=== PATIENT | female | born 1930 | race Caucasian/White ===

== ENCOUNTER → 2016-07-18 | Outpatient (CLI) | payer MEDICARE, OTHER ==
[~2016-07-18] MED LIST: ALPR.25 PO; CALC600T22 PO; CEFU1TAB43 PO; CETI10 PO; DILT120C9 PO; DUONSOL2 NEB; FLEC50TA PO; GLUCTAB PO; IPRAAER IN; LEVO75TA3 PO; LEXA10TA PO; MEDR4PAK3 PO; PRAD75CA PO; PRESCAP6 PO; RANI150T PO; SPIR25TA PO; ZOLP10TA3 PO
[2016-07-18 13:41] LABS: ALKALINE PHOSPHATASE 93 U/L (45-117); ALT (GPT) 17 U/L (10-53); ANION GAP 9 MEQ/L (5-15); AST (GOT) 16 U/L (15-37); BICARBONATE 31.3 MEQ/L (21.0-32.0); BLOOD UREA NITROGEN 20 MG/DL (7-18); CHLORIDE 102 MEQ/L (98-107); FREE T4 1.35 NG/DL (0.76-1.46); GLOMERULAR FILTRATION RATE 55 ML/MIN (>89); GLUCOSE,FASTING 126 MG/DL (74-99); SODIUM (NA) 142 MEQ/L (136-145); TOTAL BILIRUBIN ADULT 0.4 MG/DL (0.2-1.0)
== END ==
LOC: PLAB 08:27
PROVIDERS: ATTEND Internal Medicine Endocrinology, Diabetes & Metabolism
DX: E03.9 Hypothyroidism, unspecified (principal); E83.52 Hypercalcemia
CPT/HCPCS: 36415; 80053; 82306; 83970; 84439; 84443

== ENCOUNTER 2016-12-17 17:32 | Emergency (ER) | payer MEDICARE, OTHER ==
[~2016-12-17] VITALS: Ht 157.5 cm; Wt 72.5 kg
[2016-12-17 17:50] VITALS: BP 119/68; PULSE 59; RESP 16; TEMP 98; O2SAT 95
--- NOTE | 2016-12-17 18:22 | PD ---
HPI Chief Complaint: Fall Time Seen by Provider: 18:17 Travel History International Travel<30 days: No Contact w/Intl Traveler<30days: No Traveled to known affect area: No History of Present Illness HPI This 86-year-old female is complaining of left lower posterior rib pain. She says she fell and hit this area. She thinks it was a few days ago. She's been having pain since then. Her son has noted some swelling in this area. She takes Pradaxa for atrial fibrillation. He has a history of COPD. Pain is aggravated by movement and is moderate in intensity PFSH Past Medical History Hx Anticoagulant Therapy: Yes (pradaxa) Arthritis: No Asthma: No Atrial Fibrillation: Yes Autoimmune Disease: No Blood Disorders: No Anxiety: Yes Depression: No Heart Rhythm Problems: Yes (A-fib) Cancer: Yes (melanoma, forehead) Cardiovascular Problems: Yes (htn on meds, a-fib, pacemaker) High Cholesterol: No Chemotherapy: No Chest Pain: No Congestive Heart Failure: No COPD: Yes Cerebrovascular Accident: Yes (tia) Diabetes: Yes (type 2) Diminished Hearing: No Endocrine: Yes Gastrointestinal Disorders: Yes GERD: No Genitourinary: No Headaches: No Hiatal Hernia: No Hypertension: Yes Immune Disorder: No Implanted Vascular Access Dvce: No Kidney Stones: Yes Musculoskeletal: No Neurologic: Yes Psychiatric: No Reproductive: No Respiratory: Yes (copd, oxygen use at night. sleep apnea) Immunizations Current: No Migraines: No Myocardial Infarction: No Radiation Therapy: No Renal Failure: No Seizures: No Sickle Cell Disease: No Sleep Apnea: No Thyroid Disease: No Ulcer: No ?: Not Menopausal: Yes : 1 Para: 1 Past Surgical History Abdominal Surgery: Yes (appendectomy) AICD: No Appendectomy: Yes (1950) Arteriovenous Shunt: No Cardiac Surgery: Yes (pacemaker insertion April 2011) Ear Surgery: No Endocrine Surgery: No Eye Surgery: Yes (laser surgery left eye) Genitourinary Surgery: No Gynecologic Surgery: Yes Hysterectomy: No Insulin Pump: No Joint Replacement: No Neurologic Surgery: No Oral Surgery: Yes ( permanent bridge lower) Pacemaker: Yes (Guidant model 4135 serial # [id number]) Thoracic Surgery: No Other Surgery: Yes (vagal surgery over 20 years ago, kidney stone removals) Social History Alcohol Use: Yes (RARE) Tobacco Use: No (QUIT ) Substance Use: No Allergies-Medications (Allergen,Severity, Reaction): Coded Allergies: Lisinopril (Verified Allergy, Severe, Cough, 12/17/16) Reported Meds & Prescriptions Reported Meds & Active Scripts Active Reported Combivent Respimat Inh (Ipratropium-Albuterol Inh) 20-100 Correction/Act Aero 1 Puff INH QID Duoneb (Ipratropium-Albuterol Neb) 0.5-2.5 Mg/3 Ml Neb 1 Nebule INH Q4HR NEB PRN Alprazolam 0.25 Mg Tab 0.25 Mg PO Q6H PRN Ranitidine (Ranitidine HCl) 150 Mg Tab 150 Mg PO HS PRN Ambien (Zolpidem Tartrate) 10 Mg Tab 10 Mg PO HS PRN Metformin ER (Metformin HCl) 500 Mg Soy 500 Mg PO DAILY With evening meal Diltiazem ER 12 HR (Diltiazem HCl) 120 Mg Caper 120 Mg PO BID Levothyroxine (Levothyroxine Sodium) 75 Mcg Tab 75 Mcg PO DAILY Escitalopram (Escitalopram Oxalate) 10 Mg Tab 10 Mg PO DAILY Spironolactone 25 Mg Tab 25 Mg PO DAILY Flecainide (Flecainide Acetate) 50 Mg Tab 50 Mg PO BID Pradaxa (Dabigatran) 75 Mg Cap 75 Mg PO BID Review of Systems General / Constitutional: No: Fever, Chills Eyes: No: Diploplia, Blurred Vision HENT: No: Headaches, Vertigo Cardiovascular: Positive: Chest Pain or Discomfort, No: Palpitations Respiratory: Positive: Pleuritic Pain Gastrointestinal: No: Nausea, Vomiting Genitourinary: No: Urgency, Frequency Musculoskeletal: Positive: Pain, No: Myalgias Skin: No Rash, No Itching Physical Exam Narrative GENERAL: Well-developed female SKIN: Focused skin assessment warm/dry. HEAD: Atraumatic. Normocephalic. EYES: Pupils equal and round. No scleral icterus. No injection or drainage. ENT: No nasal bleeding or discharge. Mucous membranes pink and moist. NECK: Trachea midline. No JVD. CARDIOVASCULAR: Irregular rate and rhythm. No murmur appreciated. RESPIRATORY: No accessory muscle use. Clear to auscultation. Breath sounds equal bilaterally. GASTROINTESTINAL: Abdomen soft, non-tender, nondistended. Hepatic and splenic margins not palpable. Ecchymosis and some swelling in the left flank area MUSCULOSKELETAL: No obvious deformities. No clubbing. No cyanosis. No edema. There is no midline tenderness of the back. NEUROLOGICAL: Awake and alert. No obvious cranial nerve deficits. Motor grossly within normal limits. Normal speech. PSYCHIATRIC: Appropriate mood and affect; insight and judgment normal. Data Data Last Documented VS Vital Signs Date Time Temp Pulse Resp B/P Pulse Ox O2 Delivery O2 Flow Rate FiO2 12/17/16 19:40 65 18 120/70 97 Room Air 12/17/16 17:50 98.0 Orders Complete Blood Count With Diff (12/17/16 18:18) Basic Metabolic Panel (Bmp) (12/17/16 18:18) Prothrombin Time / Inr (Pt) (12/17/16 18:18) Act Partial Throm Time (Ptt) (12/17/16 18:18) Urinalysis - C+S If Indicated (12/17/16 18:18) Chest, Single Ap (12/17/16 18:18) Ct Abd/Pel W Iv Contrast(Rout) (12/17/16 18:18) Urine Culture (12/17/16 18:44) Iohexol 350 Inj (Omnipaque 350 Inj) (12/17/16 20:13) Labs Laboratory Tests Test 12/17/16 12/17/16 18:44 19:20 White Blood Count 11.3 TH/MM3 Red Blood Count 5.13 MIL/MM3 Hemoglobin 15.1 GM/DL Hematocrit 45.3 % Mean Corpuscular Volume 88.2 FL Mean Corpuscular Hemoglobin 29.4 PG Mean Corpuscular Hemoglobin 33.3 % Concent Red Cell Distribution Width 13.8 % Platelet Count 308 TH/MM3 Mean Platelet Volume 7.9 FL Neutrophils (%) (Auto) 71.9 % Lymphocytes (%) (Auto) 14.4 % Monocytes (%) (Auto) 8.1 % Eosinophils (%) (Auto) 2.3 % Basophils (%) (Auto) 3.3 % Neutrophils # (Auto) 8.1 TH/MM3 Lymphocytes # (Auto) 1.6 TH/MM3 Monocytes # (Auto) 0.9 TH/MM3 Eosinophils # (Auto) 0.3 TH/MM3 Basophils # (Auto) 0.4 TH/MM3 CBC Comment DIFF FINAL Differential Comment Prothrombin Time 10.5 SEC Prothromb Time International 1.0 RATIO Ratio Activated Partial 30.9 SEC Thromboplast Time Urine Color YELLOW Urine Turbidity CLEAR Urine pH 6.0 Urine Specific [place] 1.023 Urine Protein NEG mg/dL Urine Glucose (UA) NEG mg/dL Urine Ketones NEG mg/dL Urine Occult Blood NEG Urine Nitrite NEG Urine Bilirubin NEG Urine Leukocyte Esterase SMALL Urine RBC 0-2 /hpf Urine WBC 9-14 /hpf Urine Squamous Epithelial 6-8 /hpf Cells Urine Bacteria MOD /hpf Microscopic Urinalysis Comment CULTURE INDICATED Sodium Level 142 MEQ/L Potassium Level 5.0 MEQ/L Chloride Level 106 MEQ/L Carbon Dioxide Level 32.0 MEQ/L Anion Gap 4 MEQ/L Blood Urea Nitrogen 20 MG/DL Creatinine 0.85 MG/DL Estimat Glomerular Filtration 64 ML/MIN Rate Random Glucose 148 MG/DL Calcium Level 8.8 MG/DL [facility] Medical Decision Making Medical Screen Exam Complete: Yes Emergency Medical Condition: Yes Medical Record Reviewed: Yes Differential Diagnosis Differential includes rib fracture, flank hematoma, contusion Narrative Course Chest x-ray is read as negative. A CT scan was done. There are bilateral renal cysts. There is cholelithiasis. There is a small low density structure in the fat of the left ileum which could represent a small fluid collection related to the trauma. There is no pneumothorax. Impression is contusion of flank Diagnosis Primary Impression: Contusion of flank Qualified Code: S30.1XXA - Contusion of flank, initial encounter Additional Impression: Urinary tract infection Qualified Code: N30.00 - Acute cystitis without hematuria Scripts Nitrofurantoin Monohydrate Macrocrystals (Macrobid)100 Mg [id number] Mg PO BID 7 Days Ref 0 Prov:Denys Smith MD 12/17/16 Disposition: 01 DISCHARGE HOME Condition: Stable Denys Smith MD Dec 17, 2016 18:22
[2016-12-17] MEDS ORDERED: AMBI10TA PO (18:32)
[2016-12-17] MEDS ORDERED: RANI150T PO (18:32)
[2016-12-17] MEDS ORDERED: LEVO75TA3 PO (18:32)
[2016-12-17] MEDS ORDERED: FLEC1TAB8 PO (18:32)
[2016-12-17] MEDS ORDERED: ESCI10TA PO (18:32)
[2016-12-17] MEDS ORDERED: METF500T4 PO (18:32)
[2016-12-17] MEDS ORDERED: IPRAAER INH (18:32)
[2016-12-17] MEDS ORDERED: PRAD75CA PO (18:32)
[2016-12-17] MEDS ORDERED: SPIR25TA PO (18:32)
[2016-12-17] MEDS ORDERED: ALPR0.25 PO (18:32)
[2016-12-17] MEDS ORDERED: DILT120C9 PO (18:32)
[2016-12-17] MEDS ORDERED: IPRASOL INH (18:32)
[2016-12-17 18:50] LABS: BLOOD, URINE NEG (NEG); GLUCOSE,URINE NEG (NEG); KETONE, URINE NEG (NEG); NITRITE,URINE NEG (NEG)
[2016-12-17 18:51] LABS: AUTOMATED NEUTROPHIL # 8.1 TH/MM3 (1.8-7.7); BASOPHIL # 0.4 TH/MM3 (0-0.2); BASOPHIL % 3.3 % (0.0-2.0); EOSINOPHIL # 0.3 TH/MM3 (0-0.4); EOSINOPHIL % 2.3 % (0.0-4.0); HEMATOCRIT 45.3 % (35.0-46.0); HEMO FLAGS DIFF FINAL; LYMPH % 14.4 % (9.0-44.0); LYMPHOCYTE # 1.6 TH/MM3 (1.0-4.8); MEAN CELL VOLUME 88.2 FL (80.0-100.0); MEAN CORPUSCULAR HEMOGLOBIN 29.4 PG (27.0-34.0); MEAN CORPUSCULAR HGB CONC 33.3 % (32.0-36.0); MONO % 8.1 % (0.0-8.0); NEUT % 71.9 % (16.0-70.0); PLATELET COUNT 308 TH/MM3 (150-450); RED BLOOD COUNT 5.13 MIL/MM3 (4.00-5.30); RED CELL DISTRIBUTION WIDTH 13.8 % (11.6-17.2); WHITE BLOOD COUNT 11.3 TH/MM3 (4.0-11.0)
--- NOTE | 2016-12-17 18:52 | RADRPT ---
EXAM DATE/TIME: 12/17/2016 18:31 [facility] COMPARISON: CHEST PA & LAT, February 14, 2016, 13:34. INDICATIONS : Fell. Back pain. MEDICAL HISTORY : Chronic obstructive pulmonary disease. Diabetes mellitus type II. Atrial fibrillation. SURGICAL HISTORY : Pacemaker. ENCOUNTER: Initial ACUITY: 1 day PAIN SCORE: 0/10 LOCATION: Bilateral chest FINDINGS: A single view of the chest demonstrates the lungs to be symmetrically aerated without evidence of mas s, infiltrate or effusion. The left subclavian AV sequential transvenous pacer remains in place. The cardiomediastinal contours are unremarkable. Osseous structures are intact. CONCLUSION: No acute disease. Beto Portillo MD on December 17, 2016 at 18:50 Board Certified Radiologist. This report was verified electronically.
[2016-12-17 18:57] LABS: URINE COLOR YELLOW (YELLW/STRAW)
[2016-12-17 18:59] LABS: BACTERIA, URINE MOD /hpf; COMMENT (UR) CULTURE INDICATED; CULTURE IF INDICATED CULTURE INDICATED; RBC, URINE 0-2 /hpf (0-3)
[2016-12-17 19:05] LABS: APTT (PATIENT) 30.9 SEC (24.3-30.1); PROTHROMBIN TIME - PATIENT 10.5 SEC (9.8-11.6)
[2016-12-17 19:40] VITALS: BP 120/70; PULSE 65; RESP 18; O2SAT 97
[2016-12-17] MEDS ORDERED: IOHEXOL 350 MG/ML 10 ML VIAL (for RAD DIAG) IV ONE (20:13)
--- NOTE | 2016-12-17 20:36 | RADRPT ---
EXAM DATE/TIME: 12/17/2016 19:52 [facility] COMPARISON: No previous studies available for comparison. INDICATIONS : Pain status post fall 1 week ago. Left flank swelling. IV CONTRAST: 90 cc Omnipaque 350 (iohexol) IV ORAL CONTRAST: No oral contrast ingested. RADIATION DOSE: 12.25 CTDIvol (mGy) MEDICAL HISTORY : Cardiovascular disease. Chronic obstructive pulmonary disease. Hypertension. Renal stones. diabetic SURGICAL HISTORY : Pacemaker. Appendectomy. ENCOUNTER: Initial ACUITY: 1 week PAIN SCALE: 6/10 LOCATION: Left flank TECHNIQUE: Volumetric scanning of the abdomen and pelvis was performed. Using automated exposure control and ad justment of the mA and/or kV according to patient size, radiation dose was kept as low as reasonably achievable to obtain optimal diagnostic quality images. DICOM format image data is available electro nically for review and comparison. FINDINGS: LOWER LUNGS: The visualized lower lungs are clear. LIVER: Homogeneous density without lesion. There is no dilation of the biliary tree. There are multiple sma ll calcified gallstones. There is mild hepatic steatosis. SPLEEN: Normal size without lesion. PANCREAS: Within normal limits. KIDNEYS: Normal in size and shape. There is no solid mass, stone or hydronephrosis. There are multiple bilate ral simple appearing cysts including a large cyst in the lower pole the left kidney measuring up to 7 cm. ADRENAL GLANDS: Within normal limits. VASCULAR: There is no aortic aneurysm. BOWEL/MESENTERY: The stomach, small bowel, and colon demonstrate no acute abnormality. There is no free intraperitone al air or fluid. ABDOMINAL WALL: Intact. There are postsurgical changes with muscular atrophy involving the anterior abdominal wall mu sculature. There is no distinct hernia. There is a small oval low density fluid collection in the sub cutaneous fat along the posterior left ilium measuring 2.3 x 1.4 cm in diameter. RETROPERITONEUM: There is no lymphadenopathy. BLADDER: No wall thickening or mass. REPRODUCTIVE: Within normal limits. INGUINAL: There is no lymphadenopathy or hernia. MUSCULOSKELETAL: Within normal limits for patient age. CONCLUSION: 1. Multiple bilateral renal cysts including a large cyst in the left kidney. There is no obstruction or renal calculi. 2. Cholelithiasis with small calcified gallstones and no wall thickening or inflammatory change. 3. Mild hepatic steatosis. 4. Small low-density structure in the subcutaneous fat over the left ilium which could represent a sm all fluid collection and related to the recent trauma. Beto Portillo MD on December 17, 2016 at 20:30 Board Certified Radiologist. This report was verified electronically.
[2016-12-17] MEDS ORDERED: MACR100C2 PO ×2 (20:43→20:45)
[2016-12-17] MEDS ORDERED: NITROFURANTOIN MONOHYD MACROCR 100 MG CAP PO ONE (21:15)
[2016-12-17 21:18] VITALS: BP 122/64; PULSE 66; RESP 18; O2SAT 97
== END 2016-12-17 21:21 | disposition home or self-care (01) ==
LOC: PHED 17:32
DX: S30.1XXA Contusion of abdominal wall, initial encounter (principal); N30.00 Acute cystitis without hematuria; B96.89 Other specified bacterial agents as the cause of diseases classified elsewhere; W19.XXXA Unspecified fall, initial encounter
CPT/HCPCS: 71010; 74177; 80048; 81001; 85025; 85610; 85730; 87086; 99285; Q9967

== ENCOUNTER 2017-03-03 01:13 | Inpatient (IN) | payer MEDICARE, OTHER ==
[~2017-03-03] VITALS: Ht 157.5 cm; Wt 74.3 kg
[2017-03-03] VITALS (22 sets, daily range): BP systolic 97–134; BP diastolic 61–84; PULSE 70–136; RESP 15–26; TEMP 97.5–98.8; O2SAT 94–98
[~2017-03-03 01:13] MED LIST changes: -ALPR.25 PO; +ALPR0.25 PO; +AMBI10TA PO; -CALC600T22 PO; -CEFU1TAB43 PO; -CETI10 PO; -DUONSOL2 NEB; +ESCI10TA PO; +FLEC1TAB8 PO; -FLEC50TA PO; -GLUCTAB PO; -IPRAAER IN; +IPRAAER INH; +IPRASOL INH; -LEXA10TA PO; +MACR100C2 PO; -MEDR4PAK3 PO; +METF500T4 PO; -PRESCAP6 PO; -ZOLP10TA3 PO
[2017-03-03] MEDS ORDERED: ZITH250T PO (01:25)
[2017-03-03] MEDS ORDERED: PRED50 PO (01:25)
[2017-03-03] MEDS ORDERED: CARD120C4 PO (01:29)
[2017-03-03] MEDS ORDERED: methylPREDNISolone SOD SUCC 125 MG/2 ML VIAL IV PUSH ONE (01:45)
[2017-03-03] MEDS ORDERED: SODIUM CHLORIDE 0.9% FLUSH 10 ML FLUSH IVF PRN (01:45)
--- NOTE | 2017-03-03 02:04 | RADRPT ---
EXAM DATE/TIME: 03/03/2017 01:45 [facility] COMPARISON: CHEST SINGLE AP, December 17, 2016, 18:31. CT ABDOMEN & PELVIS W CONTRAST, December 17, 2016, 19:52. CHEST PA & LAT, July 19, 2014, 13:25. CHEST PA & LAT, February 11, 2016, 3:30. CHEST PA & LAT, [facility] 2015, 13:34. INDICATIONS : Cough, shortness of breath for 3 days MEDICAL HISTORY : Chronic obstructive pulmonary disease. Diabetes mellitus type II. Atrial fibrillation. SURGICAL HISTORY : Pacemaker. ENCOUNTER: Initial ACUITY: 3 days PAIN SCORE: 0/10 LOCATION: Bilateral chest FINDINGS: Chronic fullness and indistinctness of the right hilar region is similar in configuration to prior est x-rays dating back to February 2016. The bronchopulmonary markings the left perihilar region ar e fairly well delineated. There is a new 8mm opacity in the lateral right lung superimposed upon the posterolateral 7th rib. Both hemidiaphragms well delineated. Bipolar cardiac pacer leads stable. The heart is normal size. CONCLUSION: 1. There is a new focal opacity in the lateral right chest superimposes upon the rib and cannot diffe rentiate on this single view whether it is of pulmonary origin or not. 2. Chronic opacity right hilum obscuring the central bronchopulmonary markings unchanged from Septemb er 2006 pain. Pollo Bautista MD on March 03, 2017 at 1:59 Board Certified Radiologist. This report was verified electronically.
[2017-03-03] MEDS: RESP: ALBUTEROL 2.5 MG/IPRATROPIUM 0.5 MG NEB (SCH) INH ×3 (02:07→02:38)
[2017-03-03 02:10] LABS: AUTOMATED NEUTROPHIL # 9.3 TH/MM3 (1.8-7.7); BASOPHIL # 0.2 TH/MM3 (0-0.2); BASOPHIL % 1.3 % (0.0-2.0); EOSINOPHIL # 0.2 TH/MM3 (0-0.4); EOSINOPHIL % 1.6 % (0.0-4.0); HEMATOCRIT 43.3 % (35.0-46.0); HEMO FLAGS DIFF FINAL; LYMPH % 25.2 % (9.0-44.0); LYMPHOCYTE # 3.6 TH/MM3 (1.0-4.8); MEAN CELL VOLUME 89.4 FL (80.0-100.0); MEAN CORPUSCULAR HEMOGLOBIN 29.6 PG (27.0-34.0); MEAN CORPUSCULAR HGB CONC 33.1 % (32.0-36.0); NEUT % 64.9 % (16.0-70.0); PLATELET COUNT 367 TH/MM3 (150-450); RED BLOOD COUNT 4.84 MIL/MM3 (4.00-5.30); RED CELL DISTRIBUTION WIDTH 13.4 % (11.6-17.2); WHITE BLOOD COUNT 14.3 TH/MM3 (4.0-11.0)
[2017-03-03 02:18] LABS: CHLORIDE 105 MEQ/L (98-107); POTASSIUM 3.8 MEQ/L (3.5-5.1); SODIUM (NA) 141 MEQ/L (136-145)
[2017-03-03 02:22] LABS: ANION GAP 8 MEQ/L (5-15); BICARBONATE 27.7 MEQ/L (21.0-32.0); BLOOD UREA NITROGEN 26 MG/DL (7-18)
[2017-03-03 02:25] LABS: ALT (GPT) 20 U/L (10-53); AST (GOT) 11 U/L (15-37); GLOMERULAR FILTRATION RATE 67 ML/MIN (>89)
[2017-03-03 02:27] LABS: TOTAL BILIRUBIN ADULT 0.4 MG/DL (0.2-1.0)
[2017-03-03 02:28] LABS: ALKALINE PHOSPHATASE 106 U/L (45-117)
[2017-03-03 02:31] LABS: BLOOD GAS BASE EXCESS 3.5 mmol/L (-2-2); BLOOD GAS CARBOXYHEMOGLOBIN 1.4 % (0-4); BLOOD GAS HCO3 28 mmol/L (22-26); BLOOD GAS O2 HGB SATURATION 96 % (90-100); BLOOD GAS OXYGEN CONTENT 19.1 Vol % (12.0-20.0); BLOOD GAS PCO2 48 mmHG (38-42); BLOOD GAS PO2 109 mmHG (61-120); BLOOD GAS TOTAL HGB 14.1 G/DL (12.0-16.0); CRITICAL VALUE NO; LITER FLOW 2 L/M; OXYGEN DEVICE NASAL CANNULA; TEMP CORR TO 98.6
[2017-03-03 02:32] LABS: DRAW SITE RT BRACHIAL; NUMBER OF ARTERIAL PUNCTURES 2; STAT YES; ULNAR PULSE Y
--- NOTE | 2017-03-03 02:33 | PD ---
HPI Chief Complaint: Respiratory Symptoms Time Seen by Provider: 01:39 Travel History International Travel<30 days: No Contact w/Intl Traveler<30days: No Traveled to known affect area: No History of Present Illness HPI The patient is an 87-year-old female that complains of shortness of breath for one week. The patient does have a history of atrial fibrillation, hypertension , COPD and anxiety. The patient denies any fever but has had some sweats and chills. She is on Pradaxa for the atrial fibrillation and wears 2 L at night while sleeping but has extended the oxygen use into the daytime as well. She states she has been coughing all night and is getting little sleep. The atrial fibrillation is controlled by flexion I and diltiazem. She does have a nebulizer machine at home and has been using it 3 times daily. About 5 days ago she went to a convenience clinic and was put on Zithromax and prednisone and she has completed both courses now but she does not feel any better. 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 PFSH Past Medical History Hx Anticoagulant Therapy: Yes (pradaxa) Arthritis: No Asthma: No Atrial Fibrillation: Yes Autoimmune Disease: No Blood Disorders: No Anxiety: Yes Depression: Yes Heart Rhythm Problems: Yes (A-fib) Cancer: Yes (melanoma, forehead) Cardiovascular Problems: Yes (htn on meds, a-fib, pacemaker) High Cholesterol: No Chemotherapy: No Chest Pain: No Congestive Heart Failure: No COPD: Yes Cerebrovascular Accident: Yes (tia) Diabetes: Yes (type 2) Patient Takes Glucophage: Yes Diminished Hearing: No Endocrine: Yes Gastrointestinal Disorders: Yes GERD: No Genitourinary: No Headaches: No Hiatal Hernia: No Heparin Induced Thrombocytopen: No Hypertension: Yes Immune Disorder: No Implanted Vascular Access Dvce: Yes Kidney Stones: Yes Musculoskeletal: No Neurologic: Yes Psychiatric: No Reproductive: No Respiratory: Yes (copd, oxygen use at night. sleep apnea) Immunizations Current: No Migraines: No Myocardial Infarction: No Radiation Therapy: No Renal Failure: No Seizures: No Sickle Cell Disease: No Sleep Apnea: No Thyroid Disease: Yes Ulcer: No Tetanus Vaccination: < 5 Years Influenza Vaccination: Yes Menopausal: Yes : 1 Para: 1 Past Surgical History Abdominal Surgery: Yes (appendectomy) AICD: No Appendectomy: Yes (1950) Arteriovenous Shunt: No Cardiac Surgery: Yes (pacemaker insertion April 2011) Ear Surgery: No Endocrine Surgery: No Eye Surgery: Yes (laser surgery left eye) Genitourinary Surgery: No Gynecologic Surgery: Yes Hysterectomy: No Insulin Pump: No Joint Replacement: No Neurologic Surgery: No Oral Surgery: Yes ( permanent bridge lower) Pacemaker: Yes (Guidant model 4135 serial # [id number]) Thoracic Surgery: No Other Surgery: Yes (vagal surgery over 20 years ago, kidney stone removals) Social History Alcohol Use: Yes (RARE) Tobacco Use: No (QUIT 1990S) Substance Use: No Allergies-Medications (Allergen,Severity, Reaction): Coded Allergies: lisinopril (Unverified Allergy, Severe, Cough, 03/03/17) Reported Meds & Prescriptions Reported Meds & Active Scripts Active Reported Cardizem CD 24 HR (Diltiazem CD 24 HR) 120 Mg Caper 120 Mg PO DAILY Zithromax (Azithromycin) 250 Mg Tab 250 Mg PO DIRECTED Take 2 tabs (500 mg) on day 1 then 1 tab daily x 4 days. Prednisone 50 Mg Tab 50 Mg PO DAILY Combivent Respimat Inh (Ipratropium-Albuterol Inh) 20-100 Fpc/Act Aero 1 Puff INH QID Duoneb (Ipratropium-Albuterol Neb) 0.5-2.5 Mg/3 Ml Neb 1 Nebule INH Q4HR NEB PRN Alprazolam 0.25 Mg Tab 0.25 Mg PO Q6H PRN Ranitidine (Ranitidine HCl) 150 Mg Tab 150 Mg PO HS PRN Ambien (Zolpidem Tartrate) 10 Mg Tab 10 Mg PO HS PRN Metformin ER (Metformin HCl) 500 Mg Soy 500 Mg PO DAILY With evening meal Levothyroxine (Levothyroxine Sodium) 75 Mcg Tab 75 Mcg PO DAILY Escitalopram (Escitalopram Oxalate) 10 Mg Tab 10 Mg PO DAILY Spironolactone 25 Mg Tab 25 Mg PO DAILY Flecainide (Flecainide Acetate) 50 Mg Tab 50 Mg PO BID Pradaxa (Dabigatran) 75 Mg Cap 75 Mg PO BID Review of Systems Except as stated in HPI: all other systems reviewed are Neg Physical Exam Narrative GENERAL: The patient is alert, oriented 3 in slight respiratory distress. Her vital signs show pulse rate of 1:30 but otherwise normal. SKIN: Focused skin assessment warm/dry. HEAD: Atraumatic. Normocephalic. EYES: Pupils equal and round. No scleral icterus. No injection or drainage. ENT: No nasal bleeding or discharge. Mucous membranes pink and moist. NECK: Trachea midline. No JVD. CARDIOVASCULAR: Regular rate and rhythm. No murmur appreciated. RESPIRATORY: No accessory muscle use. Bilateral wheezes are heard in all lung dey. Breath sounds equal bilaterally. GASTROINTESTINAL: Abdomen soft, non-tender, nondistended. Hepatic and splenic margins not palpable. MUSCULOSKELETAL: No obvious deformities. No clubbing. No cyanosis. No edema. NEUROLOGICAL: Awake and alert. No obvious cranial nerve deficits. Motor grossly within normal limits. Normal speech. PSYCHIATRIC: Appropriate mood and affect; insight and judgment normal. Data Data Last Documented VS Vital Signs Date Time Temp Pulse Resp B/P (MAP) Pulse Ox O2 Delivery O2 Flow Rate FiO2 03/03/17 02:07 Nasal Cannula 2.00 03/03/17 02:07 96 03/03/17 01:35 98.2 130 16 Orders Orders Complete Blood Count With Diff (03/03/17 01:39) Comprehensive Metabolic Panel (03/03/17 01:39) B-Type Natriuretic Peptide (03/03/17 01:39) Troponin I (03/03/17 01:39) Urinalysis - C+S If Indicated (03/03/17 01:39) Influenzae A/B Antigen (03/03/17 01:39) Iv Access Insert/Monitor (03/03/17 01:39) Ecg Monitoring (03/03/17 01:39) Oximetry (03/03/17 01:39) Oxygen Administration (03/03/17 01:39) Chest, Pa & Lat (03/03/17 01:39) Sodium Chloride 0.9% Flush (Ns Flush) (03/03/17 01:45) Methylprednisolone So Succ Inj (Solumedr (03/03/17 01:45) Albuterol-Ipratropium Neb (Duoneb Neb) (03/03/17 01:45) Arterial Blood Gas (Abg) (03/03/17 ) Electrocardiogram (03/03/17 02:03) Labs Laboratory Tests Test 03/03/17 02:06 03/03/17 02:19 White Blood Count 14.3 TH/MM3 Red Blood Count 4.84 MIL/MM3 Hemoglobin 14.3 GM/DL Hematocrit 43.3 % Mean Corpuscular Volume 89.4 FL Mean Corpuscular Hemoglobin 29.6 PG Mean Corpuscular Hemoglobin Concent 33.1 % Red Cell Distribution Width 13.4 % Platelet Count 367 TH/MM3 Mean Platelet Volume 8.3 FL Neutrophils (%) (Auto) 64.9 % Lymphocytes (%) (Auto) 25.2 % Monocytes (%) (Auto) 7.0 % Eosinophils (%) (Auto) 1.6 % Basophils (%) (Auto) 1.3 % Neutrophils # (Auto) 9.3 TH/MM3 Lymphocytes # (Auto) 3.6 TH/MM3 Monocytes # (Auto) 1.0 TH/MM3 Eosinophils # (Auto) 0.2 TH/MM3 Basophils # (Auto) 0.2 TH/MM3 CBC Comment DIFF FINAL Differential Comment Blood Urea Nitrogen 26 MG/DL Creatinine 0.81 MG/DL Random Glucose 168 MG/DL Total Protein 6.5 GM/DL Albumin 3.1 GM/DL Calcium Level 8.3 MG/DL Alkaline Phosphatase 106 U/L Aspartate Amino Transf (AST/SGOT) 11 U/L Alanine Aminotransferase (ALT/SGPT) 20 U/L Total Bilirubin 0.4 MG/DL Sodium Level 141 MEQ/L Potassium Level 3.8 MEQ/L Chloride Level 105 MEQ/L Carbon Dioxide Level 27.7 MEQ/L Anion Gap 8 MEQ/L Estimat Glomerular Filtration Rate 67 ML/MIN Troponin I 0.02 NG/ML B-Type Natriuretic Peptide 321 PG/ML Blood Gas Puncture Site RT BRACHIAL Blood Gas Patient Temperature 98.6 Blood Gas HCO3 28 mmol/L Blood Gas Base Excess 3.5 mmol/L Blood Gas Oxygen Saturation 96 % Arterial Blood pH 7.38 Arterial Blood Partial Pressure CO2 48 mmHG Arterial Blood Partial Pressure O2 109 mmHG Arterial Blood Oxygen Content 19.1 Vol % Arterial Blood Carboxyhemoglobin 1.4 % Arterial Blood Methemoglobin 1.0 % Blood Gas Hemoglobin 14.1 G/DL Oxygen Delivery Device NASAL CANNULA Blood Gas Liter Flow 2 L/M MDM Medical Decision Making Medical Screen Exam Complete: Yes Emergency Medical Condition: Yes Medical Record Reviewed: Yes Interpretation(s) EKG shows a sinus tachycardia with a response rate of [address] elevation or depression. There is no significant change since 02/11/2016. Also noted are pacemaker spikes when the rate apparently slows down. The influenza antigen is negative for flu a and flu B antigen. The PA and lateral chest x- ray shows a new focal opacity in the right lateral chest superimposed on a rib. The radiologist could not differentiate whether this is pulmonary or not. There is a chronic opacity in the right hilum which is unchanged from February 2006. The complete metabolic profile shows a glucose of 168, BUN 26, albumin 3.1. The BNP is 321. Differential Diagnosis COPD with acute exacerbation, hypoxemia, acute community-acquired pneumonia, influenza, congestive heart failure, viral upper respiratory infection, urinary tract infection, sepsis Narrative Course The patient fits criteria for sepsis using the lungs as the source of sepsis. Impression is COPD with acute exacerbation and sepsis. I discussed the patient with Dr. Del Valle and the patient will be admitted to her to this hospital. The patient does have a new opacity in the right lung, this possibly could be a small pneumonia. Sepsis Criteria SIRS Criteria (2 or more): Heart rate over 90, WBC > 08446, < 4000 or > 10% bands Sepsis Criteria (SIRS+source): Infect source susp/known Diagnosis Primary Impression: Sepsis Additional Impressions: COPD with acute exacerbation Pneumonia involving right lung Kirill Pinedo MD Mar 03, 2017 02:33
[2017-03-03] MEDS ORDERED: BISACODYL 10 MG SUPP RECTAL PRN (03:00)
[2017-03-03] MEDS ORDERED: ONDANSETRON HCL 4 MG/2 ML VIAL IVP PRN (03:00)
[2017-03-03] MEDS ORDERED: MAGNESIUM HYDROXIDE SUSP 30 ML CUP PO PRN (03:00)
[2017-03-03] MEDS ORDERED: LEVOFLOXACIN 750 MG PREMIX INJ 150 ML IV SCH (03:00)
[2017-03-03] MEDS ORDERED: ACETAMINOPHEN 325 MG TAB PO PRN (03:00)
[2017-03-03] MEDS ORDERED: RESP: ALBUTEROL 2.5 MG/IPRATROPIUM 0.5 MG NEB (PRN) NEB (03:00)
[2017-03-03] MEDS ORDERED: LACTULOSE SYRUP 20 GM/30 ML CUP PO PRN (03:00)
[2017-03-03] MEDS ORDERED: MORPHINE SULFATE 4 MG/ML INJ IV PUSH PRN (03:00)
[2017-03-03] MEDS ORDERED: ACETAMINOPHEN/HYDROcodone 325 MG/5 MG TAB PO PRN (03:00)
[2017-03-03] MEDS ORDERED: SENNOSIDES 8.6 MG TAB PO PRN (03:00)
[2017-03-03 03:18] LABS: BLOOD, URINE TRACE (NEG); GLUCOSE,URINE NEG (NEG); KETONE, URINE NEG (NEG); NITRITE,URINE NEG (NEG); PH, URINE 5.5 (5.0-8.5)
[2017-03-03 03:26] LABS: BACTERIA, URINE OCC /hpf; COMMENT (UR) CULT NOT INDICATED; CULTURE IF INDICATED CULT NOT INDICATED; URINE COLOR YELLOW (YELLW/STRAW)
[2017-03-03] MEDS ORDERED: DEXTROSE 50% IN WATER 50 ML VIAL(D50) IV PUSH PRN (04:15)
[2017-03-03] MEDS ORDERED: DILTIAZEM HCL 25 MG/5 ML VIAL IV ONE (04:15)
[2017-03-03] MEDS ORDERED: GLUCAGON 1 MG/ML VIAL OTHER PRN (04:15)
[2017-03-03] MEDS ORDERED: SODIUM CHLORID 0.9% 500 ML INJ 500 ML IV ONE (04:45)
[2017-03-03] MEDS ORDERED: DILTIAZEM INJ 125 MG in SODIUM CHLORIDE 0.9% INJ 100 ML IV PRN (04:45)
[2017-03-03] MEDS: DILTIAZEM 125 MG/NS 100 ML IV PRN ×4 (05:11→15:18)
[2017-03-03] MEDS ORDERED: methylPREDNISolone SOD SUCC 40 MG/1 ML VIAL IV PUSH SCH (06:00)
[2017-03-03] MEDS: LEVOTHYROXINE SODIUM 75 MCG TAB PO SCH (06:08)
[2017-03-03] MEDS: RESP: ALBUTEROL 2.5 MG/IPRATROPIUM 0.5 MG NEB (SCH) NEB ×4 (07:57→19:55)
[2017-03-03] MEDS: INSULIN ASPART SUPPLEMENTAL SCALE SQ SCH ×5 (08:39→20:32)
[2017-03-03] MEDS: BUDESONIDE-FORMOTEROL 160/4.5 MCG INHALER INH SCH ×2 (09:00→21:24)
[2017-03-03] MEDS: SODIUM CHLORIDE 0.9% FLUSH 10 ML FLUSH IV FLUSH SCH ×2 (09:00→20:12)
[2017-03-03] MEDS: DILTIAZEM-CD 120 MG CAP ER PO SCH (09:00)
[2017-03-03] MEDS ORDERED: BENZONATATE 100 MG CAP PO PRN (09:45)
[2017-03-03] MEDS: DABIGATRAN ETEXILATE 75 MG CAP PO SCH ×2 (09:46→20:12)
[2017-03-03] MEDS: SPIRONOLACTONE 25 MG TAB PO SCH (09:46)
[2017-03-03] MEDS: ESCITALOPRAM OXALATE 10 MG TAB PO SCH (09:46)
[2017-03-03] MEDS: DOCUSATE SODIUM 50 MG/SENNA 8.6 MG TAB PO SCH ×2 (09:46→20:12)
[2017-03-03] MEDS: guaiFENesin E.R. 600 MG TAB PO SCH ×2 (09:46→20:12)
[2017-03-03] MEDS ORDERED: DILTIAZEM-CD 120 MG CAP ER PO ONE (11:30)
--- NOTE | 2017-03-03 12:31 | HHI.HP ---
[facility] Ariela Wang MD Admission Diagnosis sepsis, COPD with acute exacerbation, right pneumonia Diagnoses: Chief Complaint: Cough and short of breath Travel History International Travel<30 Days: No Contact w/Intl Traveler <30 Da: No Traveled to Known Affected Are: No History of Present Illness Patient is a pleasant 87-year-old female with a known history of COPD and atrial fibrillation. For the last week she has had a cough and short of breath with increased work of breathing. Her son with whom she lives took her to an urgent care facility 5 days ago. She was given some prednisone and azithromycin. She then began having increased shortness of breath and had some palpitations. Patient came to the emergency room overnight and was found to have atrial fibrillation with rapid ventricular response. He is admitted to the hospital with acute exacerbation of COPD as well as atrial fibrillation. Overnight she has done well. Her heart rate is improved and her respiratory status is improved. I did speak with the son at length regarding the recent changes in her home. Apparently the home had some bedbugs in the had some fumigating going on. The patient and her son have now relocated to a local motel. Review of Systems Constitutional: DENIES: Diaphoretic episodes, Fatigue, Fever, Weight gain, Weight loss, Chills, Dizziness, Change in appetite, Night Sweats Endocrine: DENIES: Abnorml menstrual pattern, Heat/cold intolerance, Polydipsia , Polyuria, Polyphagia Eyes: DENIES: Blurred vision, Diplopia, Eye inflammation, Eye pain, Vision loss , Photosensitivity, Double Vision Ears, nose, mouth, throat: DENIES: Tinnitus, Hearing loss, Vertigo, Nasal discharge, Oral lesions, Throat pain, Hoarseness, Ear Pain, Running Nose, Epistaxis, Sinus Pain, Toothache, Odynophagia Respiratory: COMPLAINS OF: Cough, Sputum production, Shortness of breath Cardiovascular: COMPLAINS OF: Palpitations, DENIES: Chest pain, Syncope, Dyspnea on Exertion, PND, Lower Extremity Edema, Orthopnea, Claudication Gastrointestinal: DENIES: Abdominal pain, Black stools, Bloody stools, Constipation, Diarrhea, Nausea, Vomiting, Difficulty Swallowing, Anorexia Genitourinary: DENIES: Abnormal vaginal bleeding, Dysmenorrhea, Dyspareunia, Sexual dysfunction, Urinary frequency, Urinary incontinence, Urgency, Hematuria , Dysuria, Nocturia, Vaginal discharge Musculoskeletal: DENIES: Joint pain, Muscle aches, Stiffness, Joint Swelling, Back pain, Neck pain Integumentary: DENIES: Abnormal pigmentation, Pruritus, Rash, Nail changes, Breast masses, Breast skin changes, Nipple discharge Hematologic/lymphatic: DENIES: Bruising, Lymphadenopathy Immunologic/allergic: DENIES: Eczema, Urticaria Neurologic: COMPLAINS OF: Abnormal gait (at baseline due to chronic weakness), DENIES: Headache, Localized weakness, Paresthesias, Seizures, Speech Problems, Tremor, Poor Balance Psychiatric: DENIES: Anxiety, Confusion, Mood changes, Depression, Hallucinations, Agitation, Suicidal Ideation, Homicidal Ideation, Delusions Except as stated in HPI: all other systems reviewed are Neg Past Family Social History Past Medical History COPD Atrial fibrillation History of stroke Past Surgical History Pacemaker Reported Medications Reviewed in the the EMR, recently was on azithromycin Allergies: Coded Allergies: lisinopril (Unverified Allergy, Severe, Cough, 03/03/17) Active Ordered Medications reviewed in the EMR Family History Family history of hypertension Social History lives with her son, no tobacco or alcohol dependency, no recent travel Physical Exam Vital Signs Vital Signs Date Time Temp Pulse Resp B/P (MAP) Pulse Ox O2 Delivery O2 Flow Rate FiO2 03/03/17 12:08 97 Nasal Cannula 1.00 03/03/17 08:59 03/03/17 07:58 97 Nasal Cannula 2.00 03/03/17 07:21 105 16 113/72 (86) 98 03/03/17 06:49 100 103/70 (81) 03/03/17 06:34 103 97/65 (76) 03/03/17 06:17 126 100/66 (77) 96 03/03/17 06:07 97/81 (86) 03/03/17 05:47 136 106/76 (86) 03/03/17 05:30 136 98/73 (81) 03/03/17 05:14 136 97/74 (82) 95 Nasal Cannula 2.00 03/03/17 05:11 136 101/62 03/03/17 04:42 136 101/62 (75) 03/03/17 02:55 130 18 112/84 (93) 96 Nasal Cannula 2.00 03/03/17 02:07 Nasal Cannula 2.00 03/03/17 02:07 96 Nasal Cannula 2.00 03/03/17 02:05 98 Nasal Cannula 2.00 03/03/17 01:35 98.2 130 16 118/83 (95) 96 Nasal Cannula 2.00 03/03/17 01:30 17 Room Air Physical Exam GENERAL: This is a well-nourished, well-developed patient, in no apparent distress. SKIN: No rashes, ecchymoses or lesions. Cool and dry. HEAD: Atraumatic. Normocephalic. No temporal or scalp tenderness. EYES: Pupils equal round and reactive. Extraocular motions intact. No scleral icterus. No injection or drainage. ENT: Nose without bleeding, purulent drainage or septal hematoma. Throat without erythema, tonsillar hypertrophy or exudate. Uvula midline. Airway patent. NECK: Trachea midline. No JVD or lymphadenopathy. Supple, nontender, no meningeal signs. CARDIOVASCULAR: Atrial fibrillation without murmurs, gallops, or rubs. RESPIRATORY: Decreased breath sounds bilaterally. No wheezes, rales, or rhonchi. GASTROINTESTINAL: Abdomen soft, non-tender, nondistended. No hepato-splenomegaly , or palpable masses. No guarding. MUSCULOSKELETAL: Extremities without clubbing, cyanosis, or edema. No joint tenderness, effusion, or edema noted. No calf tenderness. Negative Homans sign bilaterally. NEUROLOGICAL: Awake and alert. Cranial nerves II through XII intact. Motor and sensory grossly within normal limits. Five out of 5 muscle strength in all muscle groups. Normal speech. Laboratory Laboratory Tests Test 03/03/17 02:06 03/03/17 02:19 03/03/17 03:13 03/03/17 04:55 White Blood Count 14.3 Red Blood Count 4.84 Hemoglobin 14.3 Hematocrit 43.3 Mean Corpuscular Volume 89.4 Mean Corpuscular Hemoglobin 29.6 Mean Corpuscular Hemoglobin Concent 33.1 Red Cell Distribution Width 13.4 Platelet Count 367 Mean Platelet Volume 8.3 Neutrophils (%) (Auto) 64.9 Lymphocytes (%) (Auto) 25.2 Monocytes (%) (Auto) 7.0 Eosinophils (%) (Auto) 1.6 Basophils (%) (Auto) 1.3 Neutrophils # (Auto) 9.3 Lymphocytes # (Auto) 3.6 Monocytes # (Auto) 1.0 Eosinophils # (Auto) 0.2 Basophils # (Auto) 0.2 CBC Comment DIFF FINAL Differential Comment Blood Urea Nitrogen 26 Creatinine 0.81 Random Glucose 168 Total Protein 6.5 Albumin 3.1 Calcium Level 8.3 Alkaline Phosphatase 106 Aspartate Amino Transf (AST/SGOT) 11 Alanine Aminotransferase (ALT/SGPT) 20 Total Bilirubin 0.4 Sodium Level 141 Potassium Level 3.8 Chloride Level 105 Carbon Dioxide Level 27.7 Anion Gap 8 Estimat Glomerular Filtration Rate 67 Troponin I 0.02 B-Type Natriuretic Peptide 321 Blood Gas Puncture Site RT BRACHIAL Blood Gas Patient Temperature 98.6 Blood Gas HCO3 28 Blood Gas Base Excess 3.5 Blood Gas Oxygen Saturation 96 Arterial Blood pH 7.38 Arterial Blood Partial Pressure CO2 48 Arterial Blood Partial Pressure O2 109 Arterial Blood Oxygen Content 19.1 Arterial Blood Carboxyhemoglobin 1.4 Arterial Blood Methemoglobin 1.0 Blood Gas Hemoglobin 14.1 Oxygen Delivery Device NASAL CANNULA Blood Gas Liter Flow 2 Urine Color YELLOW Urine Turbidity CLEAR Urine pH 5.5 Urine Specific [place] 1.027 Urine Protein NEG Urine Glucose (UA) NEG Urine Ketones NEG Urine Occult Blood TRACE Urine Nitrite NEG Urine Bilirubin NEG Urine Leukocyte Esterase TRACE Urine RBC 3-5 Urine WBC 6-8 Urine Squamous Epithelial Cells 6-8 Urine Bacteria OCC Microscopic Urinalysis Comment CULT NOT INDICATED Lactic Acid Level 1.6 Date/Time Source Procedure Growth Status 03/03/17 04:55 Blood Peripheral Aerobic Blood Culture Pending Received 03/03/17 04:55 Blood Peripheral Anaerobic Blood Culture Pending Received 03/03/17 02:06 Nasal Aspirate Influenza Types A,B Antigen (KRISTI) - Final NEGATIVE FOR FLU A AND B ANTIGEN.... Complete Result Diagram: 03/03/17 0206 03/03/17 0206 Imaging Last Impressions Chest X-Ray 03/03/17 0139 Signed Impressions: Service Date/Time: Friday, March 03, 2017 01:45 - CONCLUSION: 1. There is a new focal opacity in the lateral right chest superimposes upon the rib and cannot differentiate on this single view whether it is of pulmonary origin or not. 2. Chronic opacity right hilum obscuring the central bronchopulmonary markings unchanged from February 2006 pain. Pollo Bautista MD Septic Shock Reassessment Heart: Irregular, Other (atrial fibrillation) Lungs: Clear Peripheral Pulses: Bounding Right Radial Bounding Left Radial Bounding Right Popliteal Bounding Left Popliteal Bounding Right Dorsalis Pedis Bounding Left Dorsalis Pedis Bounding Right Posterior Tibial Bounding Left Posterior Tibial Caprini VTE Risk Assessment Caprini VTE Risk Assessment: Mod/High Risk (score >= 2) VTE Pharm Contraindication: Documented Caprini Risk Assessment Model Point Value = 1 Point Value = 2 Point Value = 3 Point Value = 5 Age 41-60 Minor surgery BMI > 25 kg/m2 Swollen legs Varicose veins or History of unexplained or recurrent spontaneous Oral contraceptives or hormone replacement Sepsis (< 1 month) Serious lung disease, including pneumonia (< 1 month) Abnormal pulmonary function Acute myocardial infarction Congestive heart failure (< 1 month) History of inflammatory bowel disease Medical patient at bed rest Age 61-74 Arthroscopic surgery Major open surgery (> 45 min) Laparoscopic surgery (> 45 min) Malignancy Confined to bed (> 72 hours) Immobilizing plaster cast Central venous access Age >= 75 History of VTE Family history of VTE Factor V Leiden Prothrombin [id number] Lupus anticoagulant Anticardiolipin antibodies Elevated serum homocysteine Heparin-induced thrombocytopenia Other congenital or acquired thrombophilia Stroke (< 1 month) Elective arthroplasty Hip, pelvis, or leg fracture Acute spinal cord injury (< 1 month) Prophylaxis Regimen Total Risk Factor Score Risk Level Prophylaxis Regimen 0-1 Low Early ambulation 2 Moderate Order ONE of the following: *Sequential Compression Device (SCD) *Heparin 5000 units SQ BID 3-4 Higher Order ONE of the following medications: *Heparin 5000 units SQ TID *Enoxaparin/Lovenox 40 mg SQ daily (WT < 150 kg, CrCl > 30 mL/min) *Enoxaparin/Lovenox 30 mg SQ daily (WT < 150 kg, CrCl > 10-29 mL/min) *Enoxaparin/Lovenox 30 mg SQ BID (WT < 150 kg, CrCl > 30 mL/min) AND/OR *Sequential Compression Device (SCD) 5 or more Highest Order ONE of the following medications: *Heparin 5000 units SQ TID (Preferred with Epidurals) *Enoxaparin/Lovenox 40 mg SQ daily (WT < 150 kg, CrCl > 30 mL/min) *Enoxaparin/Lovenox 30 mg SQ daily (WT < 150 kg, CrCl > 10-29 mL/min) *Enoxaparin/Lovenox 30 mg SQ BID (WT < 150 kg, CrCl > 30 mL/min) AND *Sequential Compression Device (SCD) Assessment and Plan Problem List: (1) COPD with acute exacerbation ICD Code: J44.1 - Chronic obstructive pulmonary disease with (acute) exacerbation Status: Acute Plan: Continue bronchodilators, IV steroids, levaquin (2) Sepsis ICD Code: A41.9 - Sepsis, unspecified organism Status: Acute Plan: Likely due to pneumonia, continue with antibiotics Follow blood cultures (3) Pneumonia involving right lung ICD Code: J18.9 - Pneumonia, unspecified organism Status: Acute Plan: Continue Levaquin (4) Atrial fibrillation ICD Code: I48.91 - Atrial fibrillation Status: Chronic Plan: Patient on IV Cardizem and wean to oral, continue with Pradaxa (also history of stroke) Continue flecainide, follow-up electrolytes Code Status full code Discussed Condition With Patient, son, [employer] Physician Certification 2 Midnight Certification Type: Admission for Inpatient Services (3) Order for Inpatient Services The services are ordered in accordance with Medicare regulations or non- Medicare payer requirements, as applicable. In the case of services not specified as inpatient-only, they are appropriately provided as inpatient services in accordance with the 2-midnight benchmark. Estimated LOS (days): 3 3 days is the estimated time the patient will need to remain in the hospital, assuming treatment plan goals are met and no additional complications. Post-Hospital Plan: Marybel Bustillos MD Mar 03, 2017 12:31
[2017-03-03] MEDS ORDERED: CHLORHEXIDINE GLUCONATE 2 % 1 PACK (2 CLOTHS)(extra cloths) TOPICAL PRN (13:15)
[2017-03-03] MEDS: FLECAINIDE ACETATE 100 MG TAB PO SCH ×2 (13:33→20:12)
[2017-03-03] MEDS: ALPRAZolam 0.25 MG TAB PO PRN ×2 (15:20→21:21)
--- NOTE | 2017-03-03 16:32 | EKG ---
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
[2017-03-03] MEDS ORDERED: ALPRAZolam 0.5 MG TAB PO PRN (17:00)
[2017-03-03] MEDS: cefTRIAXone INJ 1,000 MG in SODIUM CHLORIDE 0.9% INJ 100 ML IV SCH (17:31)
[2017-03-03] MEDS: methylPREDNISolone SOD SUCC 40 MG/1 ML VIAL IV PUSH SCH (20:12)
[2017-03-03] MEDS: ZOLPIDEM TARTRATE 10 MG TAB PO PRN (22:36)
[2017-03-04] VITALS (29 sets, daily range): BP systolic 94–139; BP diastolic 52–80; PULSE 72–118; RESP 23–34; TEMP 97.8–98.9; O2SAT 91–97
[2017-03-04] MEDS: DILTIAZEM 125 MG/NS 100 ML IV PRN ×2 (01:48)
[2017-03-04] MEDS: methylPREDNISolone SOD SUCC 40 MG/1 ML VIAL IV PUSH SCH ×3 (04:05→19:59)
[2017-03-04] MEDS: CHLORHEXIDINE GLUCONATE 2 % 1 PACK (2 CLOTHS)(taper/protocol) TOPICAL SCH (04:09)
[2017-03-04] MEDS: METOPROLOL TARTRATE 5 MG/5 ML VIAL IV PUSH PRN ×2 (04:45→18:00)
[2017-03-04] MEDS: LEVOTHYROXINE SODIUM 75 MCG TAB PO SCH (05:47)
[2017-03-04 06:35] LABS: AUTOMATED NEUTROPHIL # 13.7 TH/MM3 (1.8-7.7); BASOPHIL % 0.1 % (0.0-2.0); EOSINOPHIL % 0.1 % (0.0-4.0); HEMATOCRIT 39.8 % (35.0-46.0); LYMPHOCYTE # 0.9 TH/MM3 (1.0-4.8); MEAN CELL VOLUME 90.1 FL (80.0-100.0); MEAN CORPUSCULAR HEMOGLOBIN 30.2 PG (27.0-34.0); MEAN CORPUSCULAR HGB CONC 33.5 % (32.0-36.0); MONO % 0.6 % (0.0-8.0); NEUT % 93.2 % (16.0-70.0); PLATELET COUNT 310 TH/MM3 (150-450); RED BLOOD COUNT 4.42 MIL/MM3 (4.00-5.30); RED CELL DISTRIBUTION WIDTH 13.5 % (11.6-17.2); WHITE BLOOD COUNT 14.7 TH/MM3 (4.0-11.0)
[2017-03-04 06:39] LABS: CHLORIDE 105 MEQ/L (98-107); POTASSIUM 4.3 MEQ/L (3.5-5.1); SODIUM (NA) 138 MEQ/L (136-145)
[2017-03-04 06:40] LABS: HEMO FLAGS DIFF FINAL
[2017-03-04 06:44] LABS: ANION GAP 8 MEQ/L (5-15); BICARBONATE 25.4 MEQ/L (21.0-32.0)
[2017-03-04 06:53] LABS: ALKALINE PHOSPHATASE 104 U/L (45-117); ALT (GPT) 17 U/L (10-53); AST (GOT) 7 U/L (15-37); BLOOD UREA NITROGEN 27 MG/DL (7-18); GLOMERULAR FILTRATION RATE 69 ML/MIN (>89); TOTAL BILIRUBIN ADULT 0.3 MG/DL (0.2-1.0)
[2017-03-04] MEDS: RESP: ALBUTEROL 2.5 MG/IPRATROPIUM 0.5 MG NEB (SCH) NEB ×4 (07:40→20:41)
[2017-03-04] MEDS: BUDESONIDE-FORMOTEROL 160/4.5 MCG INHALER INH SCH ×2 (09:00→20:00)
[2017-03-04] MEDS: SPIRONOLACTONE 25 MG TAB PO SCH (09:00)
[2017-03-04] MEDS: guaiFENesin E.R. 600 MG TAB PO SCH ×2 (09:13→20:00)
[2017-03-04] MEDS: FLECAINIDE ACETATE 100 MG TAB PO SCH ×2 (09:13→20:01)
[2017-03-04] MEDS: DABIGATRAN ETEXILATE 75 MG CAP PO SCH ×2 (09:13→20:00)
[2017-03-04] MEDS: DOCUSATE SODIUM 50 MG/SENNA 8.6 MG TAB PO SCH ×2 (09:14→21:00)
[2017-03-04] MEDS: ESCITALOPRAM OXALATE 10 MG TAB PO SCH (09:14)
[2017-03-04] MEDS: SODIUM CHLORIDE 0.9% FLUSH 10 ML FLUSH IV FLUSH SCH ×2 (09:15→20:00)
[2017-03-04] MEDS: INSULIN ASPART SUPPLEMENTAL SCALE SQ SCH ×4 (09:41→21:30)
[2017-03-04] MEDS: INSULIN DETEMIR 100 UNITS/ML VIAL SQ SCH (09:43)
[2017-03-04] MEDS: DOXYCYCLINE HYCLATE 100 MG CAP PO SCH ×2 (10:09→20:00)
--- NOTE | 2017-03-04 11:01 | HHI.PR ---
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 Objective Vitals Vital Signs Date Time Temp Pulse Resp B/P (MAP) Pulse Ox O2 Delivery O2 Flow Rate FiO2 03/04/17 10:00 116 33 102/77 (85) 94 03/04/17 09:50 112 26 115/80 (92) 94 03/04/17 09:12 86 26 94/52 (66) 91 03/04/17 09:02 82 25 92 03/04/17 08:02 80 27 92 03/04/17 08:00 76 03/04/17 07:41 94 Venturi Mask 3.00 31 03/04/17 07:02 97.9 72 25 93 03/04/17 06:00 76 03/04/17 04:00 98.8 118 27 112/75 (87) 92 03/04/17 04:00 118 03/04/17 02:00 93 03/04/17 01:48 116 122/74 03/04/17 00:00 98 03/04/17 00:00 98.9 103 26 99/58 (72) 96 03/03/17 22:00 106 03/03/17 20:00 97.5 108 26 134/67 (89) 96 03/03/17 20:00 105 03/03/17 19:55 97 Nasal Cannula 3.00 03/03/17 16:47 71 114/66 03/03/17 16:00 98.8 94 17 120/76 (91) 94 03/03/17 15:18 116 120/76 03/03/17 15:00 85 03/03/17 14:50 120 115/78 03/03/17 14:00 120 03/03/17 12:08 97 Nasal Cannula 1.00 03/03/17 12:00 98.2 70 20 115/78 (90) 96 I/O 03/03/17 03/03/17 03/03/17 03/04/17 03/04/17 03/04/17 07:00 15:00 23:00 07:00 15:00 23:00 Intake Total 650 ml 702 ml 335 ml Balance 650 ml 702 ml 335 ml Intake Oral 480 ml 230 ml IV Total 650 ml 222 ml 105 ml # Voids 2 2 # Bowel Movements 0 Result Diagram: 03/04/17 0553 03/04/17 0553 Imaging Last Impressions Chest X-Ray 03/03/17 0139 Signed Impressions: Service Date/Time: Friday, March 03, 2017 01:45 - CONCLUSION: 1. There is a new focal opacity in the lateral right chest superimposes upon the rib and cannot differentiate on this single view whether it is of pulmonary origin or not. 2. Chronic opacity right hilum obscuring the central bronchopulmonary markings unchanged from February 2006 pain. Pollo Bautista MD Objective Remarks GENERAL: This is a well-nourished, well-developed patient, in no apparent distress. CARDIOVASCULAR: paced, tachy without murmurs, gallops, or rubs. RESPIRATORY: Decreased Breath sounds equal bilaterally. No wheezes, rales, or rhonchi. GASTROINTESTINAL: Abdomen soft, non-tender, nondistended. Normal active bowel sounds MUSCULOSKELETAL: Extremities without clubbing, cyanosis, or edema. NEURO: Alert & Oriented x4 to person, place, time, situation. Moves all ext x4 A/P Problem List: (1) COPD with acute exacerbation ICD Code: J44.1 - Chronic obstructive pulmonary disease with (acute) exacerbation Status: Acute Plan: Continue bronchodilators, IV steroids, rocephin, doxy (worsening Rhythm with Azithromycin and levaquin) (2) Sepsis ICD Code: A41.9 - Sepsis, unspecified organism Status: Acute Plan: Likely due to pneumonia, continue with antibiotics Follow blood cultures (3) Pneumonia involving right lung ICD Code: J18.9 - Pneumonia, unspecified organism Status: Acute Plan: Continue rocephin and doxy (4) Atrial fibrillation ICD Code: I48.91 - Atrial fibrillation Status: Chronic Plan: Patient on IV Cardizem and wean to home oral, continue with Pradaxa ( also history of stroke) Continue flecainide, metoprolol follow-up electrolytes Cards following (5) DM (diabetes mellitus), type 2, uncontrolled ICD Code: E11.65 - Uncontrolled type II diabetes mellitus Status: Chronic Plan: SSi and ADA diet Add levemir for improved control Marybel Castillo MD Mar 04, 2017 11:01
[2017-03-04] MEDS: METOPROLOL TARTRATE 25 MG TAB PO SCH ×2 (14:00→22:53)
[2017-03-04] MEDS: cefTRIAXone INJ 1,000 MG in SODIUM CHLORIDE 0.9% INJ 100 ML IV SCH (16:00)
--- NOTE | 2017-03-04 17:04 | EKG ---
Date Performed: 03/03/2017 Time Performed: 15:19:27 PTAGE: 87 years EKG: ELECTRONIC VENTRICULAR PACEMAKER - SINCE PREVIOUS TRACING 03/03/2017 01.28 HEART RATE IS SLO WER, OTHERWISE NO SIGNIFICANT CHANGE ABNORMAL ECG PREVIOUS TRACING : 03/03/2017 01.28 DOCTOR: Curt Moise Interpretating Date/Time 03/04/2017 17:03:06
[2017-03-04] MEDS: ZOLPIDEM TARTRATE 10 MG TAB PO PRN (21:51)
[2017-03-05] VITALS (33 sets, daily range): BP systolic 100–128; BP diastolic 53–96; PULSE 7–120; RESP 20–30; TEMP 97.8–98.3; O2SAT 93–98
[2017-03-05] MEDS: DILTIAZEM 125 MG/NS 100 ML IV PRN ×2 (01:46)
[2017-03-05] MEDS ORDERED: LEVOFLOXACIN 750 MG PREMIX INJ 150 ML IV SCH (03:00)
[2017-03-05] MEDS: SODIUM CHLORIDE 0.9% FLUSH 10 ML FLUSH IV FLUSH PRN ×2 (03:16→12:31)
[2017-03-05] MEDS: CHLORHEXIDINE GLUCONATE 2 % 1 PACK (2 CLOTHS)(taper/protocol) TOPICAL SCH (03:16)
[2017-03-05] MEDS: methylPREDNISolone SOD SUCC 40 MG/1 ML VIAL IV PUSH SCH (03:16)
[2017-03-05] MEDS: LEVOTHYROXINE SODIUM 75 MCG TAB PO SCH (06:07)
[2017-03-05 06:24] LABS: AUTOMATED NEUTROPHIL # 14.3 TH/MM3 (1.8-7.7); BASOPHIL % 0.1 % (0.0-2.0); HEMATOCRIT 41.6 % (35.0-46.0); LYMPH % 5.5 % (9.0-44.0); LYMPHOCYTE # 0.8 TH/MM3 (1.0-4.8); MEAN CELL VOLUME 90.3 FL (80.0-100.0); MEAN CORPUSCULAR HEMOGLOBIN 30.1 PG (27.0-34.0); MEAN CORPUSCULAR HGB CONC 33.3 % (32.0-36.0); MONO % 0.8 % (0.0-8.0); NEUT % 93.6 % (16.0-70.0); PLATELET COUNT 337 TH/MM3 (150-450); RED BLOOD COUNT 4.61 MIL/MM3 (4.00-5.30); RED CELL DISTRIBUTION WIDTH 13.6 % (11.6-17.2); WHITE BLOOD COUNT 15.2 TH/MM3 (4.0-11.0)
[2017-03-05 06:25] LABS: HEMO FLAGS DIFF FINAL; POTASSIUM 4.3 MEQ/L (3.5-5.1)
[2017-03-05] MEDS: METOPROLOL TARTRATE 25 MG TAB PO SCH ×3 (06:26→21:14)
[2017-03-05 06:29] LABS: BICARBONATE 25.4 MEQ/L (21.0-32.0)
[2017-03-05] MEDS: INSULIN ASPART SUPPLEMENTAL SCALE SQ SCH ×4 (08:00→21:11)
[2017-03-05] MEDS: RESP: ALBUTEROL 2.5 MG/IPRATROPIUM 0.5 MG NEB (SCH) NEB ×4 (08:27→19:52)
--- NOTE | 2017-03-05 08:41 | HHI.PR ---
Subjective Remarks Patient seen and evaluated today in follow-up for atrial fibrillation and for COPD exacerbation. No new events overnight. Patient with hyperglycemia while on high-dose steroids. Care plan discussed with patient and with ICU Objective Vitals Vital Signs Date Time Temp Pulse Resp B/P (MAP) Pulse Ox O2 Delivery O2 Flow Rate FiO2 03/05/17 08:29 96 Nasal Cannula 3.00 03/05/17 07:00 70 28 108/68 (81) 95 03/05/17 06:24 70 112/69 03/05/17 06:00 84 03/05/17 06:00 84 26 100/67 (78) 95 03/05/17 05:30 80 27 112/66 (81) 94 03/05/17 05:00 82 27 109/61 (77) 94 03/05/17 04:00 97.8 92 28 112/72 (85) 94 03/05/17 04:00 92 03/05/17 03:30 111 26 111/71 (84) 94 03/05/17 03:00 120 27 108/69 (82) 95 03/05/17 02:45 94 03/05/17 02:45 94 26 109/61 (77) 95 03/05/17 02:30 94 27 109/61 (77) 95 03/05/17 02:15 120 27 102/71 (81) 95 03/05/17 02:00 120 03/05/17 02:00 120 27 102/66 (78) 95 03/05/17 01:49 120 28 107/68 (81) 95 03/05/17 01:46 121 117/74 03/05/17 01:23 118 30 117/74 (88) 96 03/05/17 01:00 92 28 104/53 (70) 96 03/05/17 00:00 98.0 100 27 117/63 (81) 95 03/05/17 00:00 100 03/04/17 23:00 112 25 97/74 (82) 97 03/04/17 22:00 96 29 130/69 (89) 96 03/04/17 21:00 100 27 118/63 (81) 96 03/04/17 20:41 97 Nasal Cannula 3.00 03/04/17 20:00 103 03/04/17 20:00 102 23 108/60 (76) 96 03/04/17 19:49 97.8 100 24 116/65 (82) 03/04/17 19:00 100 30 139/76 (97) 95 03/04/17 18:00 84 03/04/17 16:00 79 03/04/17 15:00 92 26 111/64 (80) 96 03/04/17 14:02 96 34 94 03/04/17 14:00 100 28 116/68 (84) 92 03/04/17 14:00 84 03/04/17 13:02 94 23 95 03/04/17 13:00 92 32 96/65 (75) 94 03/04/17 12:02 118 31 96 03/04/17 12:00 79 03/04/17 12:00 118 24 103/69 (80) 95 03/04/17 11:02 116 23 95 03/04/17 10:00 76 03/04/17 10:00 116 33 102/77 (85) 94 03/04/17 09:50 112 26 115/80 (92) 94 03/04/17 09:12 86 26 94/52 (66) 91 03/04/17 09:02 82 25 92 I/O 03/04/17 03/04/17 03/04/17 03/05/17 03/05/17 03/05/17 07:00 15:00 23:00 07:00 15:00 23:00 Intake Total 335 ml 820 ml 261 ml Output Total 350 ml Balance 335 ml 820 ml -89 ml Intake Oral 230 ml 820 ml 120 ml IV Total 105 ml 141 ml Output Urine Total 350 ml # Voids 2 4 1 # Bowel Movements 2 1 Result Diagram: 03/05/17 0610 03/05/17 0610 Objective Remarks GENERAL: This is a well-nourished, well-developed patient, in no apparent distress. CARDIOVASCULAR: paced, regular without murmurs, gallops, or rubs. RESPIRATORY: Decreased Breath sounds equal bilaterally. No wheezes, rales, or rhonchi. GASTROINTESTINAL: Abdomen soft, non-tender, nondistended. Normal active bowel sounds MUSCULOSKELETAL: Extremities without clubbing, cyanosis, or edema. NEURO: Alert & Oriented x4 to person, place, time, situation. Moves all ext x4 A/P Problem List: (1) COPD with acute exacerbation ICD Code: J44.1 - Chronic obstructive pulmonary disease with (acute) exacerbation Status: Acute Plan: Continue bronchodilators, IV steroids, rocephin, doxy (worsening Rhythm with Azithromycin and levaquin) (2) Sepsis ICD Code: A41.9 - Sepsis, unspecified organism Status: Acute Plan: Resolving Likely due to pneumonia, continue with antibiotics Coagulase negative staph in 1 aerobic bottle, continue current course (3) Pneumonia involving right lung ICD Code: J18.9 - Pneumonia, unspecified organism Status: Acute Plan: Continue rocephin and doxy (4) Atrial fibrillation ICD Code: I48.91 - Atrial fibrillation Status: Chronic Plan: Patient on IV Cardizem and wean to home oral, continue with Pradaxa ( also history of stroke) Continue flecainide, metoprolol follow-up electrolytes Cards following (5) DM (diabetes mellitus), type 2, uncontrolled ICD Code: E11.65 - Uncontrolled type II diabetes mellitus Status: Chronic Plan: SSi and ADA diet Wean steroids Continue Levemir for improved control Discharge Planning Likely home one to 2 days, may need home health care Marybel Castillo MD Mar 05, 2017 08:41
[2017-03-05] MEDS: BUDESONIDE-FORMOTEROL 160/4.5 MCG INHALER INH SCH ×2 (09:35→21:12)
[2017-03-05] MEDS: DOXYCYCLINE HYCLATE 100 MG CAP PO SCH ×2 (09:37→21:12)
[2017-03-05] MEDS: FLECAINIDE ACETATE 100 MG TAB PO SCH ×2 (09:37→21:13)
[2017-03-05] MEDS: DOCUSATE SODIUM 50 MG/SENNA 8.6 MG TAB PO SCH ×2 (09:37→21:00)
[2017-03-05] MEDS: DILTIAZEM-CD 120 MG CAP ER PO SCH (09:38)
[2017-03-05] MEDS: DABIGATRAN ETEXILATE 75 MG CAP PO SCH ×2 (09:38→21:12)
[2017-03-05] MEDS: guaiFENesin E.R. 600 MG TAB PO SCH ×2 (09:39→21:13)
[2017-03-05] MEDS: ESCITALOPRAM OXALATE 10 MG TAB PO SCH (09:39)
[2017-03-05] MEDS: predniSONE 20 MG TAB PO SCH ×2 (09:58→21:14)
[2017-03-05] MEDS: INSULIN DETEMIR 100 UNITS/ML VIAL SQ SCH (09:58)
[2017-03-05] MEDS: SPIRONOLACTONE 25 MG TAB PO SCH (09:58)
[2017-03-05] MEDS: SODIUM CHLORIDE 0.9% FLUSH 10 ML FLUSH IV FLUSH SCH ×2 (09:59→21:15)
[2017-03-05] MEDS: cefTRIAXone INJ 1,000 MG in SODIUM CHLORIDE 0.9% INJ 100 ML IV SCH (16:21)
[2017-03-05] MEDS: ZOLPIDEM TARTRATE 10 MG TAB PO PRN (21:12)
[2017-03-05] MEDS: ALPRAZolam 0.25 MG TAB PO PRN (22:02)
[2017-03-06] VITALS (24 sets, daily range): BP systolic 101–133; BP diastolic 67–93; PULSE 76–111; RESP 8–39; TEMP 97–98.1; O2SAT 95–99
[2017-03-06] MEDS: CHLORHEXIDINE GLUCONATE 2 % 1 PACK (2 CLOTHS)(taper/protocol) TOPICAL SCH (00:10)
[2017-03-06 04:55] LABS: AUTOMATED NEUTROPHIL # 13.1 TH/MM3 (1.8-7.7); BASOPHIL # 0.1 TH/MM3 (0-0.2); BASOPHIL % 0.8 % (0.0-2.0); HEMATOCRIT 41.2 % (35.0-46.0); HEMO FLAGS DIFF FINAL; LYMPH % 6.3 % (9.0-44.0); LYMPHOCYTE # 0.9 TH/MM3 (1.0-4.8); MEAN CORPUSCULAR HEMOGLOBIN 30.8 PG (27.0-34.0); MEAN CORPUSCULAR HGB CONC 33.5 % (32.0-36.0); MONO % 3.1 % (0.0-8.0); NEUT % 89.8 % (16.0-70.0); PLATELET COUNT 312 TH/MM3 (150-450); RED BLOOD COUNT 4.48 MIL/MM3 (4.00-5.30); RED CELL DISTRIBUTION WIDTH 14.1 % (11.6-17.2); WHITE BLOOD COUNT 14.6 TH/MM3 (4.0-11.0)
[2017-03-06 05:05] LABS: POTASSIUM 4.4 MEQ/L (3.5-5.1)
[2017-03-06] MEDS: METOPROLOL TARTRATE 25 MG TAB PO SCH ×2 (05:11→16:12)
[2017-03-06] MEDS: LEVOTHYROXINE SODIUM 75 MCG TAB PO SCH (05:11)
[2017-03-06] MEDS: RESP: ALBUTEROL 2.5 MG/IPRATROPIUM 0.5 MG NEB (SCH) NEB ×4 (07:26→20:43)
[2017-03-06] MEDS: INSULIN ASPART SUPPLEMENTAL SCALE SQ SCH ×4 (08:00→21:00)
[2017-03-06] MEDS: SODIUM CHLORIDE 0.9% FLUSH 10 ML FLUSH IV FLUSH SCH ×2 (09:00→21:28)
[2017-03-06] MEDS: DOCUSATE SODIUM 50 MG/SENNA 8.6 MG TAB PO SCH ×2 (09:00→21:25)
[2017-03-06] MEDS: SPIRONOLACTONE 25 MG TAB PO SCH (09:18)
[2017-03-06] MEDS: predniSONE 20 MG TAB PO SCH ×2 (09:19→21:25)
[2017-03-06] MEDS: guaiFENesin E.R. 600 MG TAB PO SCH ×2 (09:19→21:25)
[2017-03-06] MEDS: ESCITALOPRAM OXALATE 10 MG TAB PO SCH (09:19)
[2017-03-06] MEDS: DABIGATRAN ETEXILATE 75 MG CAP PO SCH ×2 (09:19→21:26)
[2017-03-06] MEDS: DILTIAZEM-CD 120 MG CAP ER PO SCH (09:19)
[2017-03-06] MEDS: DOXYCYCLINE HYCLATE 100 MG CAP PO SCH ×2 (09:19→21:26)
[2017-03-06] MEDS: FLECAINIDE ACETATE 100 MG TAB PO SCH ×2 (09:19→21:25)
[2017-03-06] MEDS: BUDESONIDE-FORMOTEROL 160/4.5 MCG INHALER INH SCH ×2 (09:19→21:25)
[2017-03-06] MEDS: INSULIN DETEMIR 100 UNITS/ML VIAL SQ SCH (09:20)
--- NOTE | 2017-03-06 11:04 | MB ---
cc: FLORESITA CASTILLO MD, HUMAYUN A. M.D. DATE OF CONSULTATION: 03/03/2017 REASON FOR CONSULTATION Thank you, Dr. Castillo, for asking us to see this very pleasant 87-year-old white female who presented with marked shortness of breath with right-sided pneumonia and acute exacerbation. She was also noted to have atrial fibrillation with a rapid ventricular response, hence the cardiology consultation. She was started on prednisone and Zithromax recently. She came to the emergency room with atrial fibrillation and rapid ventricular response. She has been feeling much better. Her heart rate has slowed to about 75 beats per minute which appears paced. She denies any chest pain at this time and her shortness breath is improving. PAST MEDICAL HISTORY 1. As above. 2. History of stroke. 3. Status post [employer] pacemaker. 4. Atrial fibrillation. 5. SVT. 6. Hypertension. 7. Hyperlipidemia. 8. Mild mitral, aortic and tricuspid regurgitation. 9. COPD. 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 11.Colon cancer. 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 13.Parathyroidectomy in 2012. 14.Appendectomy 1950. 15.Laser surgery, left eye. 16.Hemicolectomy. ALLERGIES LISINOPRIL. FAMILY HISTORY: Not significant. SOCIAL HISTORY Non-smoker, non-drinker, no drugs. She lives with her son. PHYSICAL EXAMINATION VITAL SIGNS: Pulse 105, HEENT: Eyes show no xanthelasma. Mouth shows no cyanosis or pallor. NECK: No JVD. HEART: Two heart sounds. No murmurs. CHEST: Clear. ABDOMEN: Soft. No hepatosplenomegaly. EXTREMITIES: Legs reveal no evidence of edema. NEUROLOGIC: Grossly intact. SKIN: Intact. LABORATORY TESTS: White count 14.3, hemoglobin 14.3, platelet count 367. Creatinine 0.8. AST and ALT were normal. EKG EKG showed atrial fibrillation with rapid ventricular response. IMAGING Chest x-ray showed a new focal opacity right chest. ASSESSMENT AND PLAN This is a patient with afib with rvr. At this point she appears stable. Will plan to continue her on her present antibiotics and treatment for pneumonia. Her heart rate is stable on her current medications. We are going to continue her on levofloxacin, Xanax, Ambien, diltiazem, inhaler, Pradaxa for the atrial fibrillation, Cardizem and Lexapro. The patient has also been on flecainide and spironolactone. Thank you for asking us to see this patient. Will see her again on a p.r.n. basis. She will follow-up in the office in due course. Belgica Oquendo MD, CP,[facility] /10:02 PM /10:43 AM MTDD
--- NOTE | 2017-03-06 11:19 | HHI.PR ---
Subjective Remarks Patient seen and evaluated today in follow-up for COPD exacerbation, pneumonia. Doing better. Breathing better and heart rate is improved. Patient out of bed to chair. Care plan discussed with INTERVENTION ANALYST Objective Vitals Vital Signs Date Time Temp Pulse Resp B/P (MAP) Pulse Ox O2 Delivery O2 Flow Rate FiO2 03/06/17 10:00 102 03/06/17 10:00 100 31 120/72 (88) 98 03/06/17 09:00 98 22 115/78 (90) 97 03/06/17 08:00 111 03/06/17 08:00 97.9 100 24 119/74 (89) 97 03/06/17 07:28 98 Nasal Cannula 3.00 03/06/17 07:00 98.0 96 25 111/68 (82) 99 03/06/17 06:00 102 03/06/17 06:00 96 24 114/72 (86) 98 03/06/17 05:05 98 26 116/82 (93) 96 03/06/17 04:00 97.7 96 24 113/80 (91) 96 03/06/17 04:00 96 03/06/17 03:00 96 39 114/77 (89) 96 03/06/17 02:00 96 03/06/17 02:00 94 8 114/73 (87) 97 03/06/17 01:00 94 29 101/88 (92) 97 03/06/17 00:00 97.0 94 31 124/75 (91) 97 03/06/17 00:00 94 03/05/17 23:00 94 27 116/75 (89) 98 03/05/17 22:00 102 03/05/17 22:00 104 28 119/79 (92) 96 03/05/17 21:00 102 27 118/71 (87) 97 03/05/17 20:00 98.3 98 26 119/74 (89) 96 03/05/17 20:00 111 03/05/17 19:52 96 Nasal Cannula 3.00 03/05/17 19:00 88 29 120/84 (96) 96 03/05/17 18:02 93 28 128/96 (107) 98 03/05/17 17:00 76 21 117/76 (90) 98 03/05/17 16:00 79 03/05/17 16:00 74 22 117/76 (90) 96 03/05/17 15:00 78 26 123/83 (96) 97 03/05/17 14:00 70 20 123/83 (96) 97 03/05/17 13:00 72 24 111/66 (81) 96 03/05/17 12:00 83 29 111/66 (81) 93 03/05/17 12:00 82 I/O 03/05/17 03/05/17 03/05/17 03/06/17 03/06/17 03/06/17 07:00 15:00 23:00 07:00 15:00 23:00 Intake Total 261 ml 600 ml 240 ml Output Total 350 ml 700 ml 600 ml Balance -89 ml -100 ml -360 ml Intake Oral 120 ml 500 ml 240 ml IV Total 141 ml 100 ml Output Urine Total 350 ml 700 ml 600 ml # Voids 1 3 1 # Bowel Movements 1 1 0 Result Diagram: 03/06/1744203/06/17442 Objective Remarks GENERAL: This is a well-nourished, well-developed patient, in no apparent distress. CARDIOVASCULAR: paced, regular without murmurs, gallops, or rubs. RESPIRATORY: Improved air sounds bilaterally, no wheezes GASTROINTESTINAL: Abdomen soft, non-tender, nondistended. Normal active bowel sounds MUSCULOSKELETAL: Extremities without clubbing, cyanosis, or edema. NEURO: Alert & Oriented x4 to person, place, time, situation. Moves all ext x4 A/P Problem List: (1) COPD with acute exacerbation ICD Code: J44.1 - Chronic obstructive pulmonary disease with (acute) exacerbation Status: Acute Plan: Continue bronchodilators, by mouth steroids, rocephin, doxy (worsening Rhythm with Azithromycin and levaquin) (2) Sepsis ICD Code: A41.9 - Sepsis, unspecified organism Status: Acute Plan: Resolving Likely due to pneumonia, continue with current antibiotics Coagulase negative staph in 1 aerobic bottle, no further workup (3) Pneumonia involving right lung ICD Code: J18.9 - Pneumonia, unspecified organism Status: Acute Plan: Continue rocephin and doxy (4) Atrial fibrillation ICD Code: I48.91 - Atrial fibrillation Status: Chronic Plan: Patient on by mouth Cardizem and Pradaxa (also history of stroke) Continue flecainide, metoprolol follow-up electrolytes Cards following (5) DM (diabetes mellitus), type 2, uncontrolled ICD Code: E11.65 - Uncontrolled type II diabetes mellitus Status: Chronic Plan: SSi and ADA diet Continue Levemir for improved control Discharge Planning Likely home in Marybel Mishra MD Mar 06, 2017 11:19
[2017-03-06] MEDS ORDERED: PILL SPLITTER OTHER PRN (11:30)
[2017-03-06] MEDS: cefTRIAXone INJ 1,000 MG in SODIUM CHLORIDE 0.9% INJ 100 ML IV SCH (16:12)
[2017-03-06] MEDS: ZOLPIDEM TARTRATE 10 MG TAB PO PRN (22:27)
[2017-03-07] VITALS: BP 119/80; PULSE 120; RESP 25; O2SAT 97
[2017-03-07 04:00] VITALS: PULSE 120; RESP 24; O2SAT 98
[2017-03-07] MEDS: CHLORHEXIDINE GLUCONATE 2 % 1 PACK (2 CLOTHS)(taper/protocol) TOPICAL SCH (04:00)
[2017-03-07] MEDS: LEVOTHYROXINE SODIUM 75 MCG TAB PO SCH (05:10)
[2017-03-07] MEDS: METOPROLOL TARTRATE 25 MG TAB PO SCH (05:11)
[2017-03-07] MEDS: RESP: ALBUTEROL 2.5 MG/IPRATROPIUM 0.5 MG NEB (SCH) NEB (07:45)
[2017-03-07 07:47] VITALS: O2SAT 99
[2017-03-07 08:00] VITALS: BP 104/81; PULSE 98; RESP 23; TEMP 97.5; O2SAT 98
[2017-03-07] MEDS: INSULIN ASPART SUPPLEMENTAL SCALE SQ SCH ×2 (08:00→12:00)
[2017-03-07] MEDS ORDERED: DILTIAZEM-CD 240 MG CAP ER PO SCH (09:00)
[2017-03-07] MEDS: SODIUM CHLORIDE 0.9% FLUSH 10 ML FLUSH IV FLUSH SCH (09:00)
[2017-03-07] MEDS: DOXYCYCLINE HYCLATE 100 MG CAP PO SCH (09:06)
[2017-03-07] MEDS: FLECAINIDE ACETATE 100 MG TAB PO SCH (09:07)
[2017-03-07] MEDS: ESCITALOPRAM OXALATE 10 MG TAB PO SCH (09:07)
[2017-03-07] MEDS: DABIGATRAN ETEXILATE 75 MG CAP PO SCH (09:07)
[2017-03-07] MEDS: DOCUSATE SODIUM 50 MG/SENNA 8.6 MG TAB PO SCH (09:07)
[2017-03-07] MEDS: BUDESONIDE-FORMOTEROL 160/4.5 MCG INHALER INH SCH (09:08)
[2017-03-07] MEDS: SPIRONOLACTONE 25 MG TAB PO SCH (09:14)
[2017-03-07] MEDS: guaiFENesin E.R. 600 MG TAB PO SCH (09:14)
[2017-03-07] MEDS: predniSONE 20 MG TAB PO SCH (09:14)
[2017-03-07] MEDS: INSULIN DETEMIR 100 UNITS/ML VIAL SQ SCH (09:24)
[2017-03-07 12:03] VITALS: BP 100/90; PULSE 97; RESP 19; O2SAT 98
[2017-03-07 13:42] VITALS: BP 112/70; PULSE 84; RESP 26; TEMP 97.5; O2SAT 98
[2017-03-07] MEDS ORDERED: PRED20 PO (13:48)
[2017-03-07] MEDS ORDERED: METO25TA3 PO (13:48)
[2017-03-07] MEDS ORDERED: CARD240C6 PO (13:48)
[2017-03-07] MEDS ORDERED: CEFA500C6 PO (13:50)
--- NOTE | 2017-03-07 13:50 | HHI.DCPOC ---
Discharge Care Plan Diagnosis: (1) DM (diabetes mellitus), type 2, uncontrolled (2) Atrial fibrillation (3) COPD with acute exacerbation (4) Pneumonia involving right lung Goals to Promote Your Health * To prevent worsening of your condition and complications * To maintain your health at the optimal level Directions to Meet Your Goals Take your medications as prescribed Follow your dietary instruction Follow activity as directed Keep your appointments as scheduled Take your immunizations and boosters as scheduled If your symptoms worsen call your PCP, if no PCP go to Urgent Care Center or Emergency Room Smoking is Dangerous to Your Health. Avoid second hand smoke Call the 24-hour hour crisis hotline for domestic abuse at Marybel Castillo MD Mar 07, 2017 13:50
--- NOTE | 2017-03-07 13:54 | HHI.DS ---
Discharge Summary Admission Date Mar 03, 2017 at 03:08 Discharge Date: Mar 07, 2017 Admitting Diagnosis sepsis, COPD with acute exacerbation, right pneumonia (1) COPD with acute exacerbation ICD Code: J44.1 - Chronic obstructive pulmonary disease with (acute) exacerbation Status: Acute (2) Sepsis ICD Code: A41.9 - Sepsis, unspecified organism Status: Acute (3) Pneumonia involving right lung ICD Code: J18.9 - Pneumonia, unspecified organism Status: Acute (4) Atrial fibrillation ICD Code: I48.91 - Atrial fibrillation Status: Chronic (5) DM (diabetes mellitus), type 2, uncontrolled ICD Code: E11.65 - Uncontrolled type II diabetes mellitus Status: Chronic Procedures none Brief History - From Admission Patient is a pleasant 87-year-old female with a known history of COPD and atrial fibrillation. For the last week she has had a cough and short of breath with increased work of breathing. Her son with whom she lives took her to an urgent care facility 5 days ago. She was given some prednisone and azithromycin. She then began having increased shortness of breath and had some palpitations. Patient came to the emergency room overnight and was found to have atrial fibrillation with rapid ventricular response. He is admitted to the hospital with acute exacerbation of COPD as well as atrial fibrillation. Overnight she has done well. Her heart rate is improved and her respiratory status is improved. I did speak with the son at length regarding the recent changes in her home. Apparently the home had some bedbugs in the had some fumigating going on. The patient and her son have now relocated to a local motel. CBC/BMP: 03/06/17 0443 03/06/17 0443 Significant Findings Laboratory Tests Test 03/05/17 06:10 03/06/17 04:43 White Blood Count 15.2 TH/MM3 (4.0-11.0) 14.6 TH/MM3 (4.0-11.0) Neutrophils (%) (Auto) 93.6 % (16.0-70.0) 89.8 % (16.0-70.0) Lymphocytes (%) (Auto) 5.5 % (9.0-44.0) 6.3 % (9.0-44.0) Neutrophils # (Auto) 14.3 TH/MM3 (1.8-7.7) 13.1 TH/MM3 (1.8-7.7) Lymphocytes # (Auto) 0.8 TH/MM3 (1.0-4.8) 0.9 TH/MM3 (1.0-4.8) Blood Urea Nitrogen 31 MG/DL (7-18) 28 MG/DL (7-18) Random Glucose 280 MG/DL (74-106) 200 MG/DL (74-106) Estimat Glomerular Filtration Rate 61 ML/MIN (>89) 74 ML/MIN (>89) Imaging Last Impressions Chest X-Ray 03/03/17 0139 Signed Impressions: Service Date/Time: Friday, March 03, 2017 01:45 - CONCLUSION: 1. There is a new focal opacity in the lateral right chest superimposes upon the rib and cannot differentiate on this single view whether it is of pulmonary origin or not. 2. Chronic opacity right hilum obscuring the central bronchopulmonary markings unchanged from February 2006 pain. Pollo Bautista MD PE at Discharge GENERAL: This is a well-nourished, well-developed patient, in no apparent distress. CARDIOVASCULAR: paced, regular without murmurs, gallops, or rubs. RESPIRATORY: Improved air sounds bilaterally, no wheezes GASTROINTESTINAL: Abdomen soft, non-tender, nondistended. Normal active bowel sounds MUSCULOSKELETAL: Extremities without clubbing, cyanosis, or edema. NEURO: Alert & Oriented x4 to person, place, time, situation. Moves all ext x4 Pt update on day of discharge patient doing better' HR improved resp status better Hospital Course Patient seen and treated for SOB and pneumonia. She had afib which was exacerbated by various antibiotics. She was treated for this and her medications were adjusted. Metoprolol was added and cardizem was increased Pt Condition on Discharge: Good Discharge Disposition: Discharge Home Discharge Time: > 30 minutes Discharge Instructions DIET: Follow Instructions for: Diabetic Diet Activities you can perform: Regular-No Restrictions Follow up Referrals: Cardiology - 1 Week PCP Follow-up - 1 Week New Medications: Cefaclor (Cefaclor) 500 Mg Cap 500 MG PO Q8H for Infection, #15 CAP 0 Refills Diltiazem CD 24 HR (Cardizem CD 24 HR) 240 Mg Caper 240 MG PO DAILY for afib, #31 CAP Metoprolol Tartrate (Metoprolol Tartrate) 25 Mg Tab 12.5 MG PO Q12H for afib, #30 TAB Prednisone (Prednisone) 20 Mg Tab 20 MG PO BID for Inflammation, #12 TAB 20 mg bid x 3 days, then 20 mg daily, then 10 mg daily x 3 days Continued Medications: Alprazolam (Alprazolam) 0.25 Mg Tab 0.25 MG PO Q6H PRN for ANXIETY, TAB 0 Refills Dabigatran (Pradaxa) 75 Mg Cap 75 MG PO BID for Blood Clot Prevention, #60 CAP 0 Refills Escitalopram (Escitalopram) 10 Mg Tab 10 MG PO DAILY, #30 TAB 0 Refills Flecainide (Flecainide) 50 Mg Tab 50 MG PO BID for Regulate Heart Beat, #60 TAB 0 Refills Ipratropium-Albuterol Inh (Combivent Respimat Inh) 20-100 Intermediate/Act Aero 1 PUFF INH QID for Asthma Management, #1 INHALER 0 Refills Ipratropium-Albuterol Neb (Duoneb) 0.5-2.5 Mg/3 Ml Neb 1 NEBULE INH Q4HR NEB PRN for SHORTNESS OF BREATH, #180 NEBULE 0 Refills Levothyroxine (Levothyroxine) 75 Mcg Tab 75 MCG PO DAILY for Thyroid, #30 TAB 0 Refills Metformin ER (Metformin ER) 500 Mg Soy 500 MG PO DAILY for Blood Sugar Management, TAB 0 Refills With evening meal Ranitidine (Ranitidine) 150 Mg Tab 150 MG PO HS PRN for REFLUX, #30 TAB 0 Refills Spironolactone (Spironolactone) 25 Mg Tab 25 MG PO DAILY, #30 TAB 0 Refills Zolpidem (Ambien) 10 Mg Tab 10 MG PO HS PRN for INSOMNIA, TAB 0 Refills Discontinued Medications: Azithromycin (Zithromax) 250 Mg Tab 250 MG PO DIRECTED for Infection, #6 TAB 0 Refills Take 2 tabs (500 mg) on day 1 then 1 tab daily x 4 days. Diltiazem CD 24 HR (Cardizem CD 24 HR) 120 Mg Caper 120 MG PO DAILY, #30 CAP 0 Refills Prednisone (Prednisone) 50 Mg Tab 50 MG PO DAILY, TAB 0 Refills Marybel Castillo MD Mar 07, 2017 13:54
== END 2017-03-07 14:35 | disposition home or self-care (01) | DRG 871 ==
LOC: PHED 01:13 → PHEDA 03:08 → PHICU 09:00
PROVIDERS: ADMIT Hospitalist; ATTEND Hospitalist
DX: A41.9 Sepsis, unspecified organism (principal); J18.9 Pneumonia, unspecified organism; E11.65 Type 2 diabetes mellitus with hyperglycemia; J44.0 Chronic obstructive pulmonary disease with (acute) lower respiratory infection; I48.91 Unspecified atrial fibrillation; J44.1 Chronic obstructive pulmonary disease with (acute) exacerbation; I08.3 Combined rheumatic disorders of mitral, aortic and tricuspid valves; F41.9 Anxiety disorder, unspecified; F32.9 Major depressive disorder, single episode, unspecified; Z79.01 Long term (current) use of anticoagulants; Z95.0 Presence of cardiac pacemaker; Z87.891 Personal history of nicotine dependence; Z79.84 Long term (current) use of oral hypoglycemic drugs; Z86.73 Personal history of transient ischemic attack (TIA), and cerebral infarction without residual deficits; E78.5 Hyperlipidemia, unspecified
CPT/HCPCS: 36600; 71020; 80048; 80053; 81001; 82805; 82948; 83605; 83880; 84484; 85025; 86403; 87040; 87205; 87804; 93005; 94640; 94664; 96374; J0696; J1815; J1956; J2920; J2930; J7040; J7512

== ENCOUNTER 2017-03-12 13:49 | Emergency (ER) | payer MEDICARE, OTHER ==
[~2017-03-12 13:49] MED LIST changes: +CARD240C6 PO; +CEFA500C6 PO; -DILT120C9 PO; -MACR100C2 PO; +METO25TA3 PO; +PRED20 PO
[2017-03-12] MEDS ORDERED: IOHEXOL 350 MG/ML 10 ML VIAL (for RAD DIAG) IV PUSH ONE (13:50)
[2017-03-12 13:54] VITALS: BP 119/72; PULSE 70; RESP 15; TEMP 98.6; O2SAT 91
[2017-03-12 16:09] LABS: BASOPHIL # 0.1 TH/MM3 (0-0.2); BASOPHIL % 0.3 % (0.0-2.0); EOSINOPHIL # 0.1 TH/MM3 (0-0.4); EOSINOPHIL % 0.3 % (0.0-4.0); HEMATOCRIT 45.9 % (35.0-46.0); LYMPH % 8.9 % (9.0-44.0); LYMPHOCYTE # 1.8 TH/MM3 (1.0-4.8); MEAN CORPUSCULAR HEMOGLOBIN 30.1 PG (27.0-34.0); MEAN CORPUSCULAR HGB CONC 32.3 % (32.0-36.0); MONO % 5.3 % (0.0-8.0); NEUT % 85.2 % (16.0-70.0); PLATELET COUNT 272 TH/MM3 (150-450); RED BLOOD COUNT 4.93 MIL/MM3 (4.00-5.30); RED CELL DISTRIBUTION WIDTH 13.9 % (11.6-17.2)
[2017-03-12 16:14] LABS: HEMO FLAGS AUTO DIFF
[2017-03-12 16:22] LABS: APTT (PATIENT) 32.3 SEC (24.3-30.1); PROTHROMBIN TIME - PATIENT 11.3 SEC (9.8-11.6)
--- NOTE | 2017-03-12 16:24 | PD ---
HPI Chief Complaint: Fall Time Seen by Provider: 16:14 Travel History International Travel<30 days: No Contact w/Intl Traveler<30days: No Traveled to known affect area: No History of Present Illness HPI 87-year-old female with history of A. fib on Pradaxa, COPD, diabetes, recently admitted for sepsis, COPD exacerbation, pneumonia, A. fib with RVR and discharged on 03/07/17, here for evaluation of several different complaints. For one the patient had a mechanical trip and fall yesterday evening, landing onto carpet. She denies head injury or LOC. She denies sustaining any injuries. When she woke up this morning she noted gross hematuria which has persisted throughout the day today. She denies abdominal pain or flank pain. She has been having some increased urinary frequency. She feels as though she is able to urinate and fully empty her bladder. No fevers or chills. Patient also complains of persistent cough and is unable to produce any sputum. She is also having some shortness of breath. She is on a prednisone taper. PFSH Past Medical History Hx Anticoagulant Therapy: Yes (pradaxa) Arthritis: Yes Asthma: No Atrial Fibrillation: Yes Autoimmune Disease: No Blood Disorders: No Anxiety: Yes (occassional social anxienty) Depression: Yes (hx of family depress) Heart Rhythm Problems: No Cancer: No Cardiovascular Problems: Yes High Cholesterol: No Chemotherapy: No Chest Pain: No Congestive Heart Failure: No COPD: No Cerebrovascular Accident: No Diabetes: Yes Patient Takes Glucophage: Yes Diminished Hearing: No Endocrine: No GERD: No Genitourinary: No Headaches: No Hiatal Hernia: No Heparin Induced Thrombocytopen: No Hypertension: Yes Immune Disorder: No Implanted Vascular Access Dvce: Yes Kidney Stones: Yes Musculoskeletal: Yes Neurologic: Yes Psychiatric: Yes Reproductive: Yes (Penile implant) Respiratory: No Immunizations Current: No Migraines: No Myocardial Infarction: No Radiation Therapy: No Renal Failure: No Seizures: No Sickle Cell Disease: No Sleep Apnea: No Thyroid Disease: Yes Ulcer: No Menopausal: Yes : 1 Para: 1 Past Surgical History Abdominal Surgery: Yes (umbilical hernia repair) AICD: No Appendectomy: Yes (1950) Arteriovenous Shunt: No Cardiac Surgery: Yes (stent placement left femoral) Ear Surgery: No Endocrine Surgery: No Eye Surgery: No Genitourinary Surgery: Yes (penile implant) Gynecologic Surgery: No Hysterectomy: No Insulin Pump: No Joint Replacement: No Neurologic Surgery: No Oral Surgery: No Pacemaker: No Thoracic Surgery: No Other Surgery: Yes (vagal surgery over 20 years ago, kidney stone removals) Social History Alcohol Use: Yes (RARE) Tobacco Use: No (QUIT ) Substance Use: No Allergies-Medications (Allergen,Severity, Reaction): Coded Allergies: lisinopril (Unverified Allergy, Severe, Cough, 03/03/17) Reported Meds & Prescriptions Reported Meds & Active Scripts Active Cefaclor 500 Mg Cap 500 Mg PO Q8H Prednisone 20 Mg Tab 20 Mg PO BID 20 mg bid x 3 days, then 20 mg daily, then 10 mg daily x 3 days Cardizem CD 24 HR (Diltiazem CD 24 HR) 240 Mg Caper 240 Mg PO DAILY Metoprolol Tartrate 25 Mg Tab 12.5 Mg PO Q12H Reported Combivent Respimat Inh (Ipratropium-Albuterol Inh) 20-100 Intermediate/Act Aero 1 Puff INH QID Duoneb (Ipratropium-Albuterol Neb) 0.5-2.5 Mg/3 Ml Neb 1 Nebule INH Q4HR NEB PRN Alprazolam 0.25 Mg Tab 0.25 Mg PO Q6H PRN Ranitidine (Ranitidine HCl) 150 Mg Tab 150 Mg PO HS PRN Ambien (Zolpidem Tartrate) 10 Mg Tab 10 Mg PO HS PRN Metformin ER (Metformin HCl) 500 Mg Soy 500 Mg PO DAILY With evening meal Levothyroxine (Levothyroxine Sodium) 75 Mcg Tab 75 Mcg PO DAILY Escitalopram (Escitalopram Oxalate) 10 Mg Tab 10 Mg PO DAILY Spironolactone 25 Mg Tab 25 Mg PO DAILY Flecainide (Flecainide Acetate) 50 Mg Tab 50 Mg PO BID Pradaxa (Dabigatran) 75 Mg Cap 75 Mg PO BID Review of Systems Except as stated in HPI: all other systems reviewed are Neg Physical Exam Narrative GENERAL: Well-developed, well-nourished, pleasant, reading a book, comfortable, no apparent distress. SKIN: Focused skin assessment warm/dry. Area of ecchymosis to left anterior forearm where previous IV was placed. There are no other areas of ecchymosis. No lacerations or abrasions. HEAD: Atraumatic. Normocephalic. EYES: Pupils equal and round. No scleral icterus. No injection or drainage. ENT: Mucous membranes pink and moist. NECK: Trachea midline. No JVD. No midline cervical spine step-off or tenderness. CARDIOVASCULAR: Regular rate and rhythm. RESPIRATORY: No accessory muscle use. Slight end expiratory wheezes bilaterally with coarse breath sounds on the left. Breath sounds equal bilaterally. GASTROINTESTINAL: Abdomen soft, non-tender, nondistended. MUSCULOSKELETAL: No obvious deformities. No clubbing. No cyanosis. No edema. No midline vertebral step-off or tenderness. No CVA tenderness. NEUROLOGICAL: Awake and alert. No obvious cranial nerve deficits. Motor grossly within normal limits. Normal speech. PSYCHIATRIC: Appropriate mood and affect; insight and judgment normal. Data Data Last Documented VS Vital Signs Date Time Temp Pulse Resp B/P (MAP) Pulse Ox O2 Delivery O2 Flow Rate FiO2 03/12/17 16:47 93 Nasal Cannula 2.00 03/12/17 13:54 98.6 70 15 119/72 (88) Orders Orders Urinalysis - C+S If Indicated (03/12/17 14:28) Complete Blood Count With Diff (03/12/17 14:28) Act Partial Throm Time (Ptt) (03/12/17 14:28) Prothrombin Time / Inr (Pt) (03/12/17 14:28) Basic Metabolic Panel (Bmp) (03/12/17 14:28) Hepatic Functional Panel (03/12/17 16:14) Ct Abd/Pel W Iv Contrast(Rout) (03/12/17 16:14) Chest, Single Ap (03/12/17 ) B-Type Natriuretic Peptide (03/12/17 16:14) Albuterol-Ipratropium Neb (Duoneb Neb) (03/12/17 16:15) Ct Brain W/O Iv Contrast(Rout) (03/12/17 ) Urine Culture (03/12/17 14:50) Labs Laboratory Tests Test 03/12/17 14:50 03/12/17 14:57 Urine Color YELLOW Urine Turbidity HAZY Urine pH 5.0 Urine Specific [place] 1.031 Urine Protein 30 mg/dL Urine Glucose (UA) 1000 mg/dL Urine Ketones NEG mg/dL Urine Occult Blood MOD Urine Nitrite NEG Urine Bilirubin NEG Urine Urobilinogen LESS THAN 2.0 MG/DL Urine Leukocyte Esterase LARGE Urine RBC 28 /hpf Urine WBC 38 /hpf Urine Squamous Epithelial Cells 15 /hpf Urine Bacteria MOD /hpf Urine Mucus FEW /lpf Urine Yeast with Hyphae RARE Urine Yeast (Budding) RARE Microscopic Urinalysis Comment CULTURE INDICATED White Blood Count 20.0 TH/MM3 Red Blood Count 4.93 MIL/MM3 Hemoglobin 14.8 GM/DL Hematocrit 45.9 % Mean Corpuscular Volume 93.0 FL Mean Corpuscular Hemoglobin 30.1 PG Mean Corpuscular Hemoglobin Concent 32.3 % Red Cell Distribution Width 13.9 % Platelet Count 272 TH/MM3 Mean Platelet Volume 8.7 FL Neutrophils (%) (Auto) 85.2 % Lymphocytes (%) (Auto) 8.9 % Monocytes (%) (Auto) 5.3 % Eosinophils (%) (Auto) 0.3 % Basophils (%) (Auto) 0.3 % Neutrophils # (Auto) 17.0 TH/MM3 Lymphocytes # (Auto) 1.8 TH/MM3 Monocytes # (Auto) 1.1 TH/MM3 Eosinophils # (Auto) 0.1 TH/MM3 Basophils # (Auto) 0.1 TH/MM3 CBC Comment AUTO DIFF Differential Total Cells Counted 100 Neutrophils % (Manual) 79 % Band Neutrophils % 3 % Lymphocytes % 15 % Monocytes % 1 % Neutrophils # (Manual) 16.8 TH/MM3 Metamyelocytes 2 % Differential Comment FINAL DIFF MANUAL Platelet Estimate NORMAL Platelet Morphology Comment NORMAL Red Cell Morphology Comment NORMAL Prothrombin Time 11.3 SEC Prothromb Time International Ratio 1.0 RATIO Activated Partial Thromboplast Time 32.3 SEC Blood Urea Nitrogen 30 MG/DL Creatinine 0.92 MG/DL Random Glucose 382 MG/DL Calcium Level 8.9 MG/DL Sodium Level 133 MEQ/L Potassium Level 4.9 MEQ/L Chloride Level 98 MEQ/L Carbon Dioxide Level 25.7 MEQ/L Anion Gap 9 MEQ/L Estimat Glomerular Filtration Rate 58 ML/MIN [facility] Medical Decision Making Medical Screen Exam Complete: Yes Emergency Medical Condition: Yes Medical Record Reviewed: Yes Differential Diagnosis UTI, gross hematuria, renal injury secondary to fall, intracranial trauma, COPD exacerbation, pneumonia, pulmonary edema Narrative Course At approximately 5:00 PM at the end of my shift the patient was signed out to Dr. Hayes to follow up with labs, imaging studies, and formulated disposition. Perico Plascencia MD Mar 12, 2017 16:24
[2017-03-12 16:27] LABS: BICARBONATE 25.7 MEQ/L (21.0-32.0); POTASSIUM 4.9 MEQ/L (3.5-5.1)
[2017-03-12 16:31] LABS: BACTERIA, URINE MOD /hpf; BLOOD, URINE MOD (NEG); GLUCOSE,URINE 1000 mg/dL (NEG); KETONE, URINE NEG (NEG); MUCUS URINE FEW /lpf (OCC); NITRITE,URINE NEG (NEG); SQUAMOUS EPITHELIAL CELL URINE 15 /hpf (0-5); URINE COLOR YELLOW (YELLW/STRAW)
[2017-03-12] MEDS: RESP: ALBUTEROL 2.5 MG/IPRATROPIUM 0.5 MG NEB (SCH) INH ×3 (16:35→17:32)
[2017-03-12 16:40] LABS: COMMENT (UR) CULTURE INDICATED; CULTURE IF INDICATED CULTURE INDICATED
[2017-03-12 16:47] VITALS: O2SAT 93
[2017-03-12 16:47] LABS: BANDS 3 % (0-6); METAMYELOCYTES 2 % (0-1); NEUTROPHIL # MANUAL DIFF 16.8 TH/MM3 (1.8-7.7); PLATELET ESTIMATE SMEAR NORMAL (NORMAL); PLATELET MORPHOLOGY NORMAL (NORMAL); POLYS (SEG NEUTROPHILS) 79 % (16-70); SCAN/DIFF FINAL DIFF MANUAL; WBC DIFF SAMPLE 100
--- NOTE | 2017-03-12 17:06 | RADRPT ---
EXAM DATE/TIME: 03/12/2017 16:45 [facility] COMPARISON: CHEST SINGLE AP, December 17, 2016, 18:31. INDICATIONS : Shortness of breath. MEDICAL HISTORY : Chronic obstructive pulmonary disease. Diabetes mellitus type II. A-Fib SURGICAL HISTORY : Pacemaker. ENCOUNTER: Initial ACUITY: 1 day PAIN SCORE: 0/10 LOCATION: Bilateral chest FINDINGS: A single view of the chest demonstrates the lungs to be symmetrically aerated without evidence of mas s, infiltrate or effusion. The cardiomediastinal contours are unremarkable. Osseous structures are intact. CONCLUSION: Normal examination. Left subclavian bipolar pacer in good position Bhavesh Roberts MD on March 12, 2017 at 17:04 Board Certified Radiologist. This report was verified electronically.
[2017-03-12 17:22] LABS: INDIRECT BILIRUBIN 0.4 MG/DL (0.0-0.8); TOTAL BILIRUBIN ADULT 0.5 MG/DL (0.2-1.0)
--- NOTE | 2017-03-12 17:42 | RADRPT ---
EXAM DATE/TIME: 03/12/2017 17:17 [facility] COMPARISON: CT BRAIN W/O CONTRAST, March 05, 2014, 12:55. INDICATIONS : Trauma; fall. RADIATION DOSE: 48.56 CTDIvol (mGy) MEDICAL HISTORY : Cardiovascular disease. Hypertension. Hepatitis C. SURGICAL HISTORY : Appendectomy. ENCOUNTER: Initial ACUITY: 1 day PAIN SCALE: 4/10 LOCATION: cranial TECHNIQUE: Multiple contiguous axial images were obtained of the head. Using automated exposure control and adj ustment of the mA and/or kV according to patient size, radiation dose was kept as low as reasonably a chievable to obtain optimal diagnostic quality images. DICOM format image data is available electro nically for review and comparison. FINDINGS: CEREBRUM: The ventricles, sulci, and basal cisterns are prominent, characteristic of moderate severity central cortical atrophy. The degree of atrophy is unchanged from prior examination in 2013.. No evidence o f midline shift, mass lesion, hemorrhage or acute infarction. No extra-axial fluid collections are s een. POSTERIOR FOSSA: The cerebellum and brainstem are intact. The 4th ventricle is midline. The cerebellopontine angle i s unremarkable. EXTRACRANIAL: The visualized portion of the orbits is intact. SKULL: The calvaria is intact. No evidence of skull fracture. CONCLUSION: 1. No acute findings in the brain. 2. Moderate severity atrophy, stable from prior. Pollo Bautista MD on March 12, 2017 at 17:38 Board Certified Radiologist. This report was verified electronically.
--- NOTE | 2017-03-12 17:48 | RADRPT ---
EXAM DATE/TIME: 03/12/2017 17:21 [facility] COMPARISON: No previous studies available for comparison. INDICATIONS : Abdomen pain. IV CONTRAST: 100 cc Omnipaque 350 (iohexol) IV ORAL CONTRAST: No oral contrast ingested. RADIATION DOSE: 9.62 CTDIvol (mGy) MEDICAL HISTORY : Cardiovascular disease. Hypertension. Hepatitis C. SURGICAL HISTORY : Appendectomy. ENCOUNTER: Initial ACUITY: 1 day PAIN SCALE: 5/10 LOCATION: Bilateral abdomen. TECHNIQUE: Volumetric scanning of the abdomen and pelvis was performed. Using automated exposure control and ad justment of the mA and/or kV according to patient size, radiation dose was kept as low as reasonably achievable to obtain optimal diagnostic quality images. DICOM format image data is available electro nically for review and comparison. FINDINGS: LOWER LUNGS: The visualized lower lungs are clear. LIVER: Homogeneous density without lesion. There is no dilation of the biliary tree. Few calcified gallsto yanique. SPLEEN: Normal size without lesion. PANCREAS: Within normal limits. KIDNEYS: Normal in size and shape. There is no mass, stone or hydronephrosis other than numerous benign cysts . ADRENAL GLANDS: Within normal limits. VASCULAR: There is no aortic aneurysm. BOWEL/MESENTERY: The stomach, small bowel, and colon demonstrate no acute abnormality. There is no free intraperitone al air or fluid. ABDOMINAL WALL: Numerous surgical clips suggesting hernia repair RETROPERITONEUM: There is no lymphadenopathy. BLADDER: No wall thickening or mass. REPRODUCTIVE: Within normal limits. INGUINAL: There is no lymphadenopathy or hernia. MUSCULOSKELETAL: Within normal limits for patient age. CONCLUSION: Normal examination except for multiple renal cysts. Gallstones without evidence of acute cholecystiti s Bahvesh Roberts MD on March 12, 2017 at 17:42 Board Certified Radiologist. This report was verified electronically.
[2017-03-12 17:58] VITALS: RESP 18; O2SAT 95
[2017-03-12] MEDS ORDERED: FLUCONAZOLE 100 MG TAB PO ONE (18:00)
--- NOTE | 2017-03-12 18:08 | PD ---
Data Data Last Documented VS Vital Signs Date Time Temp Pulse Resp B/P (MAP) Pulse Ox O2 Delivery O2 Flow Rate FiO2 03/12/17 18:20 03/12/17 17:58 18 95 Room Air 03/12/17 16:47 2.00 03/12/17 13:54 98.6 70 Orders Orders Urinalysis - C+S If Indicated (03/12/17 14:28) Complete Blood Count With Diff (03/12/17 14:28) Act Partial Throm Time (Ptt) (03/12/17 14:28) Prothrombin Time / Inr (Pt) (03/12/17 14:28) Basic Metabolic Panel (Bmp) (03/12/17 14:28) Hepatic Functional Panel (03/12/17 16:14) Ct Abd/Pel W Iv Contrast(Rout) (03/12/17 16:14) Chest, Single Ap (03/12/17 ) B-Type Natriuretic Peptide (03/12/17 16:14) Albuterol-Ipratropium Neb (Duoneb Neb) (03/12/17 16:15) Ct Brain W/O Iv Contrast(Rout) (03/12/17 ) Urine Culture (03/12/17 14:50) Iohexol 350 Inj (Omnipaque 350 Inj) (03/12/17 13:50) Fluconazole (Diflucan) (03/12/17 18:00) Labs Laboratory Tests Test 03/12/17 14:50 03/12/17 14:57 Urine Color YELLOW Urine Turbidity HAZY Urine pH 5.0 Urine Specific [place] 1.031 Urine Protein 30 mg/dL Urine Glucose (UA) 1000 mg/dL Urine Ketones NEG mg/dL Urine Occult Blood MOD Urine Nitrite NEG Urine Bilirubin NEG Urine Urobilinogen LESS THAN 2.0 MG/DL Urine Leukocyte Esterase LARGE Urine RBC 28 /hpf Urine WBC 38 /hpf Urine Squamous Epithelial Cells 15 /hpf Urine Bacteria MOD /hpf Urine Mucus FEW /lpf Urine Yeast with Hyphae RARE Urine Yeast (Budding) RARE Microscopic Urinalysis Comment CULTURE INDICATED White Blood Count 20.0 TH/MM3 Red Blood Count 4.93 MIL/MM3 Hemoglobin 14.8 GM/DL Hematocrit 45.9 % Mean Corpuscular Volume 93.0 FL Mean Corpuscular Hemoglobin 30.1 PG Mean Corpuscular Hemoglobin Concent 32.3 % Red Cell Distribution Width 13.9 % Platelet Count 272 TH/MM3 Mean Platelet Volume 8.7 FL Neutrophils (%) (Auto) 85.2 % Lymphocytes (%) (Auto) 8.9 % Monocytes (%) (Auto) 5.3 % Eosinophils (%) (Auto) 0.3 % Basophils (%) (Auto) 0.3 % Neutrophils # (Auto) 17.0 TH/MM3 Lymphocytes # (Auto) 1.8 TH/MM3 Monocytes # (Auto) 1.1 TH/MM3 Eosinophils # (Auto) 0.1 TH/MM3 Basophils # (Auto) 0.1 TH/MM3 CBC Comment AUTO DIFF Differential Total Cells Counted 100 Neutrophils % (Manual) 79 % Band Neutrophils % 3 % Lymphocytes % 15 % Monocytes % 1 % Neutrophils # (Manual) 16.8 TH/MM3 Metamyelocytes 2 % Differential Comment FINAL DIFF MANUAL Platelet Estimate NORMAL Platelet Morphology Comment NORMAL Red Cell Morphology Comment NORMAL Prothrombin Time 11.3 SEC Prothromb Time International Ratio 1.0 RATIO Activated Partial Thromboplast Time 32.3 SEC Blood Urea Nitrogen 30 MG/DL Creatinine 0.92 MG/DL Random Glucose 382 MG/DL Calcium Level 8.9 MG/DL Sodium Level 133 MEQ/L Potassium Level 4.9 MEQ/L Chloride Level 98 MEQ/L Carbon Dioxide Level 25.7 MEQ/L Anion Gap 9 MEQ/L Estimat Glomerular Filtration Rate 58 ML/MIN Total Bilirubin 0.5 MG/DL Direct Bilirubin 0.1 MG/DL Indirect Bilirubin 0.4 MG/DL Aspartate Amino Transf (AST/SGOT) 8 U/L Alanine Aminotransferase (ALT/SGPT) 36 U/L Alkaline Phosphatase 108 U/L B-Type Natriuretic Peptide 49 PG/ML Total Protein 6.5 GM/DL Albumin 3.0 GM/DL [facility] Supervised Visit with BRITTANY: No Narrative Course Patient care assumed from Dr. Perico Plascencia At 1700, this is an 87-year-old female was just released the hospital for COPD exacerbation/pneumonia, she had a fall today and has been having hematuria which are her 2 chief complaints, I was asked to follow-up the patient's CAT scan of her abdomen and head to assure that she had no significant injuries. CAT scan of her head and C-spine were essentially negative for traumatic injuries, discussed the incidental findings of cysts on her kidneys and instructed to follow-up with her primary care physician. She does have a yeast infection which may be causing some of her irritation and hematuria. On my reassessment patient is calm sitting in a stretcher reading a novel. She appears to be in no distress. She states that the bleeding has since resolved but she was unsure as to whether was coming from her urine or her vagina. She was offered an exam but ultimately she will need follow-up with her [employer] for consideration of endometrial biopsy and this was conveyed to her. Also recommended that she follow up with her primary care physician. She does have a yeast infection which certainly could explain the irritation/bleeding. She was given Diflucan in the emergency department. Given her somewhat short of breath status in the emergency department Dr. Plascencia and I thought it best for the patient to stop her beta davida which she was started on on her last admission until she discussed with her primary care physician whom she has an appointment with tomorrow as well as her ship's captain whom she has an appointment with later in the week prior to resuming. She is well rate controlled and recommended controlling all of her other medicines including antibiotics and her calcium channel davida. She is stable for discharge. Diagnosis Primary Impression: Hematuria Additional Impressions: Fall Yeast infection Patient Instructions: Acute Hematuria (DC), Fall Prevention (DC), General Instructions Additional Instruction: Patient told to hold lopressor for now given history of COPD and recent pneumonia. Was just started while hospitalized for pneumonia. Will discuss with Dr. Brito (tomorrow) and Dr. Oquendo. Disposition: 01 DISCHARGE HOME Condition: Stable Fred Hayes MD Mar 12, 2017 18:08
== END 2017-03-12 18:43 | disposition home or self-care (01) ==
LOC: NEPD 13:49
DX: R31.9 Hematuria, unspecified (principal); B37.9 Candidiasis, unspecified; R06.02 Shortness of breath; I48.91 Unspecified atrial fibrillation; E11.9 Type 2 diabetes mellitus without complications; I10 Essential (primary) hypertension; B96.89 Other specified bacterial agents as the cause of diseases classified elsewhere; J44.0 Chronic obstructive pulmonary disease with (acute) lower respiratory infection; W18.30XA Fall on same level, unspecified, initial encounter; Z79.01 Long term (current) use of anticoagulants
CPT/HCPCS: 70450; 71010; 74177; 80048; 80076; 81001; 83880; 85007; 85027; 85610; 85730; 87077; 87086; 87186; 94640; 94664; 99285; Q9967

== ENCOUNTER → 2017-03-13 | Outpatient (CLI) | payer MEDICARE, OTHER ==
[2017-03-13 13:37] LABS: ANION GAP 8 MEQ/L (5-15); AST (GOT) 8 U/L (15-37); BICARBONATE 29.2 MEQ/L (21.0-32.0); BLOOD UREA NITROGEN 32 MG/DL (7-18); CHLORIDE 100 MEQ/L (98-107); GLOMERULAR FILTRATION RATE 44 ML/MIN (>89); GLUCOSE,FASTING 374 MG/DL (74-99); POTASSIUM 5.2 MEQ/L (3.5-5.1); SODIUM (NA) 137 MEQ/L (136-145)
[2017-03-13 13:49] LABS: ALKALINE PHOSPHATASE 106 U/L (45-117); ALT (GPT) 32 U/L (10-53); FREE T4 1.73 NG/DL (0.76-1.46); TOTAL BILIRUBIN ADULT 0.6 MG/DL (0.2-1.0)
== END ==
LOC: PLAB 09:07
PROVIDERS: ATTEND Internal Medicine Endocrinology, Diabetes & Metabolism
DX: E03.9 Hypothyroidism, unspecified (principal); E83.59 Other disorders of calcium metabolism; E21.0 Primary hyperparathyroidism
CPT/HCPCS: 36415; 80053; 83970; 84439; 84443

== ENCOUNTER → 2017-03-16 | Outpatient (CLI) | payer MEDICARE, OTHER ==
[2017-03-16 16:13] LABS: BACTERIA, URINE RARE /hpf; BLOOD, URINE NEG (NEG); COMMENT (UR) CULT NOT INDICATED; CULTURE IF INDICATED CULT NOT INDICATED; GLUCOSE,URINE 1000 mg/dL (NEG); KETONE, URINE NEG (NEG); MUCUS URINE FEW /lpf (OCC); NITRITE,URINE NEG (NEG); PH, URINE 5.5 (5.0-8.5); SQUAMOUS EPITHELIAL CELL URINE 8 /hpf (0-5); TRANSITIONAL EPI CELLS, URINE 2 /hpf; URINE COLOR YELLOW (YELLW/STRAW)
== END ==
LOC: PLAB 13:40
PROVIDERS: ATTEND Family Medicine
DX: R30.0 Dysuria (principal)
CPT/HCPCS: 81001